=== PATIENT | female | born 1950 | race American Indian/Alaskan Native ===

== ENCOUNTER 2018-06-05 09:06 | Emergency (ER) | payer MEDICARE ==
[2018-06-05] MEDS ORDERED: NACL 0.9% 1000 ML 1,000 ML IV ONE ×2 (09:24→12:57)
[2018-06-05 09:40] LABS: Basophils # (Auto) 0.1 K/mm3 (0.0-0.1); Eosinophils # (Auto) 0.2 K/mm3 (0.0-0.4); Eosinophils % (Auto) 1.8 % (0.0-4.3); Hematocrit 42.8 % (30.3-42.9); Hemoglobin 14.3 gm/dl (10.1-14.3); Lymphocytes # (Auto) 2.1 K/mm3 (1.2-5.4); Lymphocytes % (Auto) 20.7 % (13.4-35.0); Mean Corpuscular HGB Conc 33 % (30-34); Mean Corpuscular Volume 85 fl (79-97); Monocytes # (Auto) 0.8 K/mm3 (0.0-0.8); Monocytes % (Auto) 7.8 % (0.0-7.3); Platelet Count 266 K/mm3 (140-440); Red Blood Count 5.07 M/mm3 (3.65-5.03); Red Cell Distribution Width 15.3 % (13.2-15.2)
[2018-06-05 10:01] LABS: Alanine Aminotransferase 11 units/L (7-56); Albumin 4.3 g/dL (3.9-5); BUN/Creatinine Ratio 10; Blood Urea Nitrogen 7 mg/dL (7-17); Calcium 10.3 mg/dL (8.4-10.2); Hemolysis Index 4
--- NOTE | 2018-06-05 10:22 | Emergency Department Report ---
ED Abdominal Pain HPI - General Chief Complaint: Abdominal Pain Stated Complaint: BOWEL BLOCKAGE X5DAYS Time Seen by Provider: 06/05/18 10:11 Source: patient Mode of arrival: Ambulatory Limitations: No Limitations - History of Present Illness Initial Comments: Patient is 67 years old female with history of hypertension. Patient presented to the ER complaining of abdominal pain for the last 5 days on and off. Patient described her pain as a fullness feeling. Patient stated that when she goes to the bathroom she would have a small amount of urine and stool. Patient also indicated that she'd been having urinary frequency. Patient denied any fever or chills. No chest pain or shortness of breath. MD Complaint: abdominal pain -: week(s) Location: diffuse Radiation: none Migration to: no migration Severity: moderate Severity scale (0 -10): 4 Quality: fullness Consistency: constant Associated Symptoms: denies other symptoms - Related Data Previous Rx's Medication Instructions Recorded Last Taken Type Clindamycin [Clindamycin CAP] 150 mg PO Q6HR #30 capsule 04/29/18 Unknown Rx Lisinopril/Hydrochlorothiazide 1 tab PO QDAY #30 tab 04/29/18 Unknown Rx [Zestoretic 20-12.5 mg] Tramadol HCl [Ultram] 50 mg PO Q6H PRN #10 tablet 04/29/18 Unknown Rx Docusate Sodium [Colace] 100 mg PO BID PRN #60 capsule 06/05/18 Unknown Rx Lactulose 10 gm PO DAILY PRN #150 ml 06/05/18 Unknown Rx Ondansetron [Zofran Odt] 4 mg PO Q8HR PRN #14 tab.rapdis 06/05/18 Unknown Rx Allergies Allergy/AdvReac Type Severity Reaction Status Date / Time acetaminophen [From Vicodin] Allergy Rash Verified 04/29/18 07:44 hydrocodone [From Vicodin] Allergy Rash Verified 04/29/18 07:44 ED Review of Systems ROS: Stated complaint: BOWEL BLOCKAGE X5DAYS Other details as noted in HPI Comment: All other systems reviewed and negative Constitutional: denies: chills, fever Respiratory: denies: cough, orthopnea, shortness of breath, SOB with exertion, SOB at rest, stridor, wheezing Cardiovascular: denies: chest pain, palpitations, dyspnea on exertion, orthopnea Gastrointestinal: abdominal pain, nausea, constipation. denies: vomiting, diarrhea, hematemesis, melena, hematochezia Genitourinary: urgency, frequency. denies: dysuria, hematuria, discharge, abnormal menses Neurological: denies: headache, weakness, numbness, paresthesias, confusion, abnormal gait ED Past Medical Hx - Past Medical History Previous Medical History?: Yes Hx Hypertension: Yes - Surgical History Past Surgical History?: Yes Additional Surgical History: 1980 - Social History Smoking Status: Never Smoker Substance Use Type: None - Medications Home Medications: Home Medications Medication Instructions Recorded Confirmed Last Taken Type Clindamycin [Clindamycin CAP] 150 mg PO Q6HR #30 capsule 04/29/18 Unknown Rx Lisinopril/Hydrochlorothiazide 1 tab PO QDAY #30 tab 04/29/18 Unknown Rx [Zestoretic 20-12.5 mg] Tramadol HCl [Ultram] 50 mg PO Q6H PRN #10 tablet 04/29/18 Unknown Rx Docusate Sodium [Colace] 100 mg PO BID PRN #60 capsule 06/05/18 Unknown Rx Lactulose 10 gm PO DAILY PRN #150 ml 06/05/18 Unknown Rx Ondansetron [Zofran Odt] 4 mg PO Q8HR PRN #14 tab.rapdis 06/05/18 Unknown Rx ED Physical Exam - General Limitations: No Limitations General appearance: alert, in no apparent distress - Head Head exam: Present: atraumatic, normocephalic, normal inspection - Eye Eye exam: Present: normal appearance, PERRL - ENT ENT exam: Present: normal exam, normal orophraynx, mucous membranes moist - Neck Neck exam: Present: normal inspection, full ROM. Absent: tenderness, meningismus, lymphadenopathy, thyromegaly - Respiratory Respiratory exam: Present: normal lung sounds bilaterally. Absent: respiratory distress, wheezes, rales, rhonchi, stridor, chest wall tenderness, accessory muscle use, decreased breath sounds, prolonged expiratory - Cardiovascular Cardiovascular Exam: Present: regular rate, normal rhythm, normal heart sounds - GI/Abdominal GI/Abdominal exam: Present: soft, distended, normal bowel sounds. Absent: tenderness, guarding, rebound, rigid, organomegaly, mass, bruit, pulsatile mass, hernia - Extremities Exam Extremities exam: Present: normal inspection, full ROM, normal capillary refill. Absent: pedal edema, calf tenderness - Back Exam Back exam: Present: normal inspection, full ROM. Absent: tenderness, CVA tenderness (R), CVA tenderness (L), muscle spasm, paraspinal tenderness, vertebral tenderness - Neurological Exam Neurological exam: Present: alert, oriented X3, CN II-XII intact, normal gait, reflexes normal - Psychiatric Psychiatric exam: Present: normal mood - Skin Skin exam: Present: warm, intact, normal color ED Course Vital Signs 06/05/18 06/05/18 06/05/18 09:21 10:40 12:59 Temperature 98.9 F 98.6 F 98.4 F Pulse Rate 77 65 60 Respiratory 18 16 16 Rate Blood Pressure 175/85 Blood Pressure 157/65 177/83 [Right] O2 Sat by Pulse 97 100 100 Oximetry ED Medical Decision Making - Lab Data Result diagrams: 06/05/18 09:28 06/05/18 09:28 - Radiology Data Radiology results: report reviewed Referring Physician: SHILOH SALCEDO Patient Name: EDWARD GOODE Date of : 1950 Sex: Female Report Date: 2018-06-05 Report Status: Finalized Findings [facility] [address] [place] [address] Ultrasound Report Signed Patient: EDWARD GOODE MR#: [id number] : 1950 Acct:[id number] Age/Sex: 67 / F ADM Date: 06/05/18 Loc: ED Attending Dr: Ordering Physician: SHILOH SALCEDO Date of Service: 06/05/18 Procedure(s): US abdomen limited Accession Number(s): [id number] cc: SHILOH SALCEDO ULTRASOUND ABDOMEN LIMITED INDICATION: Abdominal pain. COMPARISON: CT from earlier today. FINDINGS: Right upper quadrant sonography suggests slight diffuse hepatic coarsening without focal suspicious lesions or biliary dilatation. Grossly normal hepatic contours. A curvilinear gallbladder echogenicity with extensive posterior shadowing/obscuration of gallbladder toward the blade hepatis noted as on image 32. Approximately 5 cm long remainder gallbladder distal to this point however filled with diffuse echogenic material/sludge. No pericholecystic fluid or positive sonographic Machado's sign. Gallbladder wall thickness is 3 mm. CBD caliber is also 3 mm. Normal imaged pancreas, aorta and IVC. No hydronephrosis. Right kidney is 10.1 x 4.9 x 5 cm with cortical thickness of 1.3 cm. CONCLUSION: Sonographic appearance similar to CT from earlier today with a gallbladder echogenicity noted with sludge distally while more proximal gallbladder towards the blade hepatis obscured, as described. Few other findings as negative sonographic Machado's sign and hepatic coarsening, as above. Please correlate. Thank you for the opportunity to participate in this patient's care. Transcribed By: RS Dictated By: DORIS SANFORD MD Electronically Authenticated By: DORIS SANFORD MD Signed Date/Time: 06/05/18 1342 DD/ 1336 TD/TT: 06/05/18 1342 Referring Physician: SHILOH SALCEDO Patient Name: EDWARD GOODE Date of : 1950 Sex: Female Report Date: 2018-06-05 Report Status: Finalized Findings [facility] [address] [place] [address] Cat Scan Report Signed Patient: EDWARD GOODE MR#: [id number] : 1950 Acct:[id number] Age/Sex: 67 / F ADM Date: 06/05/18 Loc: ED Attending Dr: Ordering Physician: SHILOH SALCEDO Date of Service: 06/05/18 Procedure(s): CT abdomen pelvis w con Accession Number(s): [id number] cc: SHILOH SALCEDO CT ABDOMEN AND PELVIS WITH CONTRAST INDICATION: Abdominal pain. COMPARISON: None similar at this institution. FINDINGS: Abdomen and pelvis CT performed following intravenous administration of 100 cc of Omnipaque 300. LUNG BASES: Top normal heart size. No effusions. Slight increased AP chest diameter. Nonspecific distal esophageal wall mild prominence/thickening, not excluded for gastroesophageal reflux and/or hiatal hernia, amongst others. ABDOMEN: Mild waist and few calcifications noted about the mid gallbladder, axial series 2, image 48, amongst others with further distal gallbladder half toward the fundus containing somewhat hyperdense contents with subtle hyperdense sludge at the fundus also possible as on coronal image 42. Lower half of the gallbladder though demonstrates normal hypodense fluid. No abnormal biliary dilatation. Liver, spleen, pancreas, kidneys and IVC within normal limits. Nonaneurysmal abdominal aorta with few atherosclerotic aortoiliac calcifications. Slight diffuse adrenal prominence/possible hyperplasia, more so on the right. Retroaortic component of a circumaortic left renal vein incidentally noted. No ascites or definite size significant adenopathy. Nonopacified GI tract evaluation limited, though grossly nonobstructive. Normal appendix. PELVIS: Uterus, adnexa, urinary bladder and the rectosigmoid within normal limits. No free fluid or significant adenopathy. Approximately 1.7 cm bilateral inguinal canal region fatty hernia-like prominence as on axial image 166, series 2, amongst others. Demineralized bones. Mild multilevel spinal degenerative spurring. L5-S1 disc narrowing with vacuum phenomenon. Bilateral hip degenerative changes as well. Approximately 3.6 x 1.5 cm asymmetric fatty prominence/lipoma at the left seventh rib costochondral junction anteriorly also incidentally noted as on axial image 44. CONCLUSION: Gallbladder CT appearance, as detailed above, exact etiology or chronicity uncertain, not excluded for old infection or inflammatory, though other possibilities including neoplasm difficult to entirely exclude on this exam alone. Few other incidental findings, as above. Please also correlate clinically. Direct comparison with prior CT images, if available, would also be very helpful in this setting. Thank you for the opportunity to participate in this patient's care. Transcribed By: RS Dictated By: DORIS SANFORD MD Electronically Authenticated By: DORIS SANFORD MD Signed Date/Time: 06/05/18 1137 DD/ 1121 TD/TT: 06/05/18 1137 - Medical Decision Making Patient is 67 years old female with history of hypertension. Patient presented to the ER complaining of abdominal pain for the last 5 days on and off. Patient described her pain as a fullness feeling. Patient stated that when she goes to the bathroom she would have a small amount of urine and stool. Patient also indicated that she'd been having urinary frequency. Patient denied any fever or chills. No chest pain or shortness of breath. Patient informed about how her CT abdomen and pelvis results. Also the gallbladder results and advised the patient to follow-up with Dr. Tabares or surgeon in the next 2-3 days for further management and evaluation. Critical care attestation.: If time is entered above; I have spent that time in minutes in the direct care of this critically ill patient, excluding procedure time. ED Disposition Clinical Impression: Abdominal pain Disposition: DC-01 TO HOME OR SELFCARE Is pt being admited?: No Condition: Stable Instructions: Constipation (ED), High Fiber Diet (ED), Abdominal Pain (ED) Prescriptions: Docusate Sodium [Colace] 100 mg PO BID PRN #60 capsule PRN Reason: Constipation Lactulose 10 gm PO DAILY PRN #150 ml PRN Reason: Constipation Ondansetron [Zofran Odt] 4 mg PO Q8HR PRN #14 tab.rapdis PRN Reason: Nausea And Vomiting Referrals: DALTON TABARES MD [Staff Physician] - 3-5 Days
[2018-06-05 10:26] LABS: Bacteria,Urine 1+ /HPF (Negative); Bilirubin,Urine NEG (Negative); Blood,Urine SM (Negative); Color,Urine Yellow (Yellow); Mucus,Urine FEW /HPF; Protein,Urine <15 mg/dL mg/dL (Negative); Urobilinogen,Urine < 2.0 mg/dL (<2.0)
--- NOTE | 2018-06-05 11:41 | Cat Scan Report ---
CT ABDOMEN AND PELVIS WITH CONTRAST INDICATION: Abdominal pain. COMPARISON: None similar at this institution. FINDINGS: Abdomen and pelvis CT performed following intravenous administration of 100 cc of Omnipaque 300. LUNG BASES: Top normal heart size. No effusions. Slight increased AP chest diameter. Nonspecific distal esophageal wall mild prominence/thickening, not excluded for gastroesophageal reflux and/or hiatal hernia, amongst others. ABDOMEN: Mild waist and few calcifications noted about the mid gallbladder, axial series 2, image 48, amongst others with further distal gallbladder half toward the fundus containing somewhat hyperdense contents with subtle hyperdense sludge at the fundus also possible as on coronal image 42. Lower half of the gallbladder though demonstrates normal hypodense fluid. No abnormal biliary dilatation. Liver, spleen, pancreas, kidneys and IVC within normal limits. Nonaneurysmal abdominal aorta with few atherosclerotic aortoiliac calcifications. Slight diffuse adrenal prominence/possible hyperplasia, more so on the right. Retroaortic component of a circumaortic left renal vein incidentally noted. No ascites or definite size significant adenopathy. Nonopacified GI tract evaluation limited, though grossly nonobstructive. Normal appendix. PELVIS: Uterus, adnexa, urinary bladder and the rectosigmoid within normal limits. No free fluid or significant adenopathy. Approximately 1.7 cm bilateral inguinal canal region fatty hernia-like prominence as on axial image 166, series 2, amongst others. Demineralized bones. Mild multilevel spinal degenerative spurring. L5-S1 disc narrowing with vacuum phenomenon. Bilateral hip degenerative changes as well. Approximately 3.6 x 1.5 cm asymmetric fatty prominence/lipoma at the left seventh rib costochondral junction anteriorly also incidentally noted as on axial image 44. CONCLUSION: Gallbladder CT appearance, as detailed above, exact etiology or chronicity uncertain, not excluded for old infection or inflammatory, though other possibilities including neoplasm difficult to entirely exclude on this exam alone. Few other incidental findings, as above. Please also correlate clinically. Direct comparison with prior CT images, if available, would also be very helpful in this setting. Thank you for the opportunity to participate in this patient's care.
--- NOTE | 2018-06-05 13:46 | Ultrasound Report ---
ULTRASOUND ABDOMEN LIMITED INDICATION: Abdominal pain. COMPARISON: CT from earlier today. FINDINGS: Right upper quadrant sonography suggests slight diffuse hepatic coarsening without focal suspicious lesions or biliary dilatation. Grossly normal hepatic contours. A curvilinear gallbladder echogenicity with extensive posterior shadowing/obscuration of gallbladder toward the blade hepatis noted as on image 32. Approximately 5 cm long remainder gallbladder distal to this point however filled with diffuse echogenic material/sludge. No pericholecystic fluid or positive sonographic Machado's sign. Gallbladder wall thickness is 3 mm. CBD caliber is also 3 mm. Normal imaged pancreas, aorta and IVC. No hydronephrosis. Right kidney is 10.1 x 4.9 x 5 cm with cortical thickness of 1.3 cm. CONCLUSION: Sonographic appearance similar to CT from earlier today with a gallbladder echogenicity noted with sludge distally while more proximal gallbladder towards the blade hepatis obscured, as described. Few other findings as negative sonographic Machado's sign and hepatic coarsening, as above. Please correlate. Thank you for the opportunity to participate in this patient's care.
[2018-06-05 15:10] VITALS: BP 177/85
== END 2018-06-05 15:10 | disposition home or self-care (01) ==
LOC: ED 09:06
DX: R10.84 Generalized abdominal pain (principal); R35.0 Frequency of micturition; I10 Essential (primary) hypertension; Z88.5 Allergy status to narcotic agent
CPT/HCPCS: 36415; 74177; 76705; 80053; 81001; 83690; 85025; 99284; J7030; Q9967

== ENCOUNTER 2020-01-11 07:49 | Inpatient (IN) | payer MEDICARE ==
[2020-01-11 08:30] LABS: Hematocrit 41.6 % (30.3-42.9); Mean Corpuscular HGB Conc 34 % (30-34); Mean Corpuscular Volume 87 fl (79-97); Platelet Count 291 K/mm3 (140-440); Red Cell Distribution Width 15.2 % (13.2-15.2)
[2020-01-11 08:53] LABS: Alanine Aminotransferase 12 units/L (7-56); Albumin 4.4 g/dL (3.9-5); BUN/Creatinine Ratio 20; Blood Urea Nitrogen 10 mg/dL (7-17); Calcium 10.4 mg/dL (8.4-10.2); Hemolysis Index 8
[2020-01-11 09:00] LABS: Bilirubin,Urine NEG (Negative); Color,Urine Yellow (Yellow)
[2020-01-11 09:01] LABS: Bacteria,Urine 1+ /HPF (Negative); Blood,Urine SM (Negative); Mucus,Urine 1+ /HPF; Urobilinogen,Urine < 2.0 mg/dL (<2.0)
[2020-01-11 09:21] LABS: Basophils % (Manual) 0 % (0.0-1.8); Eosinophils % (Manual) 0 % (0.0-4.3); Total Cells Counted 100
[2020-01-11 09:22] LABS: Platelet Estimate Consistent w Auto; RBC Morphology Normal; Toxic Vacuolation Few
--- NOTE | 2020-01-11 11:14 | Emergency Department Report ---
HPI - General Chief Complaint: Abdominal Pain Time Seen by Provider: 01/11/20 11:04 - HPI HPI: This is a 69-year-old -Swazi female presents to the emergency department with a complaint of a 3-day history of generalized abdominal pain. On examination it appears to be worse in the upper quadrants and the patient describes the pain as a soreness. She has some mild nausea without vomiting. The patient says "I feel like I have to burp but I cannot burp, and I cannot have a bowel movement." She also describes a burning sensation. For this r claudia she took some Pepto-Bismol that did help with the burning sensation. She denies any dysuria, fever, vaginal bleeding or discharge. Patient says she is scared to eat or drink as she feels that it just "sits there", but it does not aggravate or alleviate her discomfort. She has a past medical history of hypertension. No recent travel or sick contacts at home. ED Past Medical Hx - Past Medical History Previous Medical History?: Yes Hx Hypertension: Yes - Surgical History Past Surgical History?: Yes Additional Surgical History: 1980 - Social History Smoking Status: Never Smoker Substance Use Type: None - Medications Home Medications: Home Medications Medication Instructions Recorded Confirmed Last Taken Type Losartan Potassium 50 mg PO DAILY 01/11/20 01/11/20 01/11/20 History ED Review of Systems ROS: Stated complaint: BELLY BURNING AND SWELLING Other details as noted in HPI Comment: All other systems reviewed and negative Constitutional: denies: chills, fever Eyes: denies: eye pain, vision change ENT: denies: ear pain, throat pain Respiratory: denies: cough, shortness of breath Cardiovascular: denies: chest pain, palpitations Gastrointestinal: abdominal pain, nausea. denies: vomiting Genitourinary: denies: dysuria, discharge Musculoskeletal: denies: back pain, arthralgia Skin: denies: rash, lesions Neurological: denies: headache, weakness Physical Exam - Physical Exam Vital Signs: Vital Signs 01/11/20 01/11/20 01/11/20 07:53 11:06 11:08 Temperature 98.7 F 98.8 F Pulse Rate 100 H 101 H 90 Respiratory 20 19 16 Rate Blood Pressure 153/83 Blood Pressure 172/95 [Left] O2 Sat by Pulse 97 99 Oximetry 01/11/20 11:10 Temperature Pulse Rate Respiratory 16 Rate Blood Pressure Blood Pressure [Left] O2 Sat by Pulse Oximetry Physical Exam: GENERAL: The patient is well-developed well-nourished. HENT: Normocephalic. Atraumatic. Patient has moist mucous membranes. EYES: Extraocular motions are intact. NECK: Supple. Trachea is midline. CHEST/LUNGS: Clear to auscultation. There is no respiratory distress noted. HEART/CARDIOVASCULAR: Regular. There is no tachycardia. ABDOMEN: Abdomen is soft. Epigastric and right upper quadrant abdominal tenderness to palpation. No guarding. Patient has normal bowel sounds. There is no abdominal distention. SKIN: Skin is warm and dry. NEURO: The patient is awake, alert, and oriented. The patient is cooperative. The patient has no focal neurologic deficits. Normal speech. MUSCULOSKELETAL: There is no tenderness or deformity. There is no evidence of acute injury. ED Course Vital Signs 01/11/20 01/11/20 01/11/20 07:53 11:06 11:08 Temperature 98.7 F 98.8 F Pulse Rate 100 H 101 H 90 Respiratory 20 19 16 Rate Blood Pressure 153/83 Blood Pressure 172/95 [Left] O2 Sat by Pulse 97 99 Oximetry 01/11/20 11:10 Temperature Pulse Rate Respiratory 16 Rate Blood Pressure Blood Pressure [Left] O2 Sat by Pulse Oximetry - Reevaluation(s) Reevaluation #1: 01/11/20 18:07 Lab Results 01/11/20 01/11/20 01/11/20 Range/Units 08:17 08:17 10:33 WBC 21.8 H (4.5-11.0) K/mm3 RBC 4.80 (3.65-5.03) M/mm3 Hgb 14.0 (10.1-14.3) gm/dl Hct 41.6 (30.3-42.9) % MCV 87 (79-97) fl MCH 29 (28-32) pg MCHC 34 (30-34) % RDW 15.2 (13.2-15.2) % Plt Count 291 (140-440) K/mm3 Add Manual Diff Complete Total Counted 100 Seg Neuts % (Manual) 90.0 H (40.0-70.0) % Band Neutrophils % 0 % Lymphocytes % (Manual) 4.0 L (13.4-35.0) % Reactive Lymphs % (Man) 0 % Monocytes % (Manual) 6.0 (0.0-7.3) % Eosinophils % (Manual) 0 (0.0-4.3) % Basophils % (Manual) 0 (0.0-1.8) % Metamyelocytes % 0 % Myelocytes % 0 % Promyelocytes % 0 % Blast Cells % 0 % Nucleated RBC % Not Reportable Seg Neutrophils # Man 19.6 H (1.8-7.7) K/mm3 Band Neutrophils # 0.0 K/mm3 Lymphocytes # (Manual) 0.9 L (1.2-5.4) K/mm3 Abs React Lymphs (Man) 0.0 K/mm3 Monocytes # (Manual) 1.3 H (0.0-0.8) K/mm3 Eosinophils # (Manual) 0.0 (0.0-0.4) K/mm3 Basophils # (Manual) 0.0 (0.0-0.1) K/mm3 Metamyelocytes # 0.0 K/mm3 Myelocytes # 0.0 K/mm3 Promyelocytes # 0.0 K/mm3 Blast Cells # 0.0 K/mm3 WBC Morphology Not Reportable Hypersegmented Neuts Not Reportable Hyposegmented Neuts Not Reportable Hypogranular Neuts Not Reportable Smudge Cells Not Reportable Toxic Granulation Not Reportable Toxic Vacuolation Few Dohle Bodies Not Reportable Pelger-Huet Anomaly Not Reportable Sawyer Rods Not Reportable Platelet Estimate Consistent w auto Clumped Platelets Not Reportable Plt Clumps, EDTA Not Reportable Large Platelets Not Reportable Giant Platelets Not Reportable Platelet Satelliting Not Reportable Plt Morphology Comment Not Reportable RBC Morphology Normal Dimorphic RBCs Not Reportable Polychromasia Not Reportable Hypochromasia Not Reportable Poikilocytosis Not Reportable Anisocytosis Not Reportable Microcytosis Not Reportable Macrocytosis Not Reportable Spherocytes Not Reportable Pappenheimer Bodies Not Reportable Sickle Cells Not Reportable Target Cells Not Reportable Tear Drop Cells Not Reportable Ovalocytes Not Reportable Helmet Cells Not Reportable Alaniz-[place] Bodies Not Reportable [place] Rings Not Reportable [place] Cells Not Reportable Bite Cells Not Reportable Crenated Cell Not Reportable Elliptocytes Not Reportable Acanthocytes (Spur) Not Reportable Rouleaux Not Reportable Hemoglobin C Crystals Not Reportable Schistocytes Not Reportable Malaria parasites Not Reportable [place] Bodies Not Reportable Hem Pathologist Commnt No Sodium 140 (137-145) mmol/L Potassium 3.8 (3.6-5.0) mmol/L Chloride 101.2 (98-107) mmol/L Carbon Dioxide 24 (22-30) mmol/L Anion Gap 19 mmol/L BUN 10 (7-17) mg/dL Creatinine 0.5 L (0.6-1.2) mg/dL Estimated GFR > 60 ml/min BUN/Creatinine Ratio 20 % Glucose 151 H (65-100) mg/dL Lactic Acid (0.7-2.0) mmol/L Calcium 10.4 H (8.4-10.2) mg/dL Total Bilirubin 0.70 (0.1-1.2) mg/dL AST 12 (5-40) units/L ALT 12 (7-56) units/L Alkaline Phosphatase 79 (35-129) units/L Total Protein 7.5 (6.3-8.2) g/dL Albumin 4.4 (3.9-5) g/dL Albumin/Globulin Ratio 1.4 % Lipase 10 L (13-60) units/L 01/11/20 Range/Units 10:33 WBC (4.5-11.0) K/mm3 RBC (3.65-5.03) M/mm3 Hgb (10.1-14.3) gm/dl Hct (30.3-42.9) % MCV (79-97) fl MCH (28-32) pg MCHC (30-34) % RDW (13.2-15.2) % Plt Count (140-440) K/mm3 Add Manual Diff Total Counted Seg Neuts % (Manual) (40.0-70.0) % Band Neutrophils % % Lymphocytes % (Manual) (13.4-35.0) % Reactive Lymphs % (Man) % Monocytes % (Manual) (0.0-7.3) % Eosinophils % (Manual) (0.0-4.3) % Basophils % (Manual) (0.0-1.8) % Metamyelocytes % % Myelocytes % % Promyelocytes % % Blast Cells % % Nucleated RBC % Seg Neutrophils # Man (1.8-7.7) K/mm3 Band Neutrophils # K/mm3 Lymphocytes # (Manual) (1.2-5.4) K/mm3 Abs React Lymphs (Man) K/mm3 Monocytes # (Manual) (0.0-0.8) K/mm3 Eosinophils # (Manual) (0.0-0.4) K/mm3 Basophils # (Manual) (0.0-0.1) K/mm3 Metamyelocytes # K/mm3 Myelocytes # K/mm3 Promyelocytes # K/mm3 Blast Cells # K/mm3 WBC Morphology Hypersegmented Neuts Hyposegmented Neuts Hypogranular Neuts Smudge Cells Toxic Granulation Toxic Vacuolation Dohle Bodies Pelger-Huet Anomaly Sawyer Rods Platelet Estimate Clumped Platelets Plt Clumps, EDTA Large Platelets Giant Platelets Platelet Satelliting Plt Morphology Comment RBC Morphology Dimorphic RBCs Polychromasia Hypochromasia Poikilocytosis Anisocytosis Microcytosis Macrocytosis Spherocytes Pappenheimer Bodies Sickle Cells Target Cells Tear Drop Cells Ovalocytes Helmet Cells Alaniz-[place] Bodies [place] Cells Bite Cells Crenated Cell Elliptocytes Acanthocytes (Spur) Rouleaux Hemoglobin C Crystals Schistocytes Malaria parasites Grayson Bodies Hem Pathologist Commnt Sodium (137-145) mmol/L Potassium (3.6-5.0) mmol/L Chloride (98-107) mmol/L Carbon Dioxide (22-30) mmol/L Anion Gap mmol/L BUN (7-17) mg/dL Creatinine (0.6-1.2) mg/dL Estimated GFR ml/min BUN/Creatinine Ratio % Glucose (65-100) mg/dL Lactic Acid 0.90 (0.7-2.0) mmol/L Calcium (8.4-10.2) mg/dL Total Bilirubin (0.1-1.2) mg/dL AST (5-40) units/L ALT (7-56) units/L Alkaline Phosphatase (35-129) units/L Total Protein (6.3-8.2) g/dL Albumin (3.9-5) g/dL Albumin/Globulin Ratio % Lipase (13-60) units/L - Consultations Consultation #1: 01/11/20 12:26 I spoke with the general surgeon on-call, Dr. Tabares, who will consult on the patient. The patient should be admitted to the hospitalist service and he will consult. The patient is not going for a cholecystectomy today but will most likely have one in the next few days. ED Medical Decision Making - Lab Data Result diagrams: 01/11/20 08:17 01/11/20 08:17 - Radiology Data Radiology results: report reviewed CT ABDOMEN AND PELVIS WITH CONTRAST INDICATION / CLINICAL INFORMATION: Unspecified abdominal pain. TECHNIQUE: Axial CT images were obtained through the abdomen and pelvis after 100 cc Omnipaque [address] scans at this location are performed using CT dose reduction for ALARA by means of automated exposure control. COMPARISON: None available. FINDINGS: LOWER CHEST: No significant abnormality. LIVER: No significant abnormality. GALLBLADDER: C holelithiasis is seen with moderate gallbladder wall thickening and surrounding inflammation. BILE DUCTS: No significant abnormality. PANCREAS: No significant abnormality. SPLEEN: No significant abnormality. ADRENALS: No significant abnormality. RIGHT KIDNEY / URETER: No significant abnormality. LEFT KIDNEY / URETER: No significant abnormality. STOMACH / SMALL BOWEL: No significant abnormality. COLON: Sigmoid diverticulosis without evidence of diverticulitis. No other significant abnormality. APPENDIX: No significant abnormality. PERITONEUM: Trace dependent free fluid along the pelvis. No free air. No fluid collection. LYMPH NODES: No significant adenopathy. AORTA / ARTERIES: Moderate generalized atherosclerosis. No other significant abnormality. IVC / VEINS: No significant abnormality. URINARY BLADDER: No significant abnormality. REPRODUCTIVE ORGANS: No significant abnormality. ADDITIONAL FINDINGS: None. SKELETAL SYSTEM: No acute abnormality. Mild degenerative changes throughout the spine. IMPRESSION: 1. Cholelithiasis with evidence of acute cholecystitis. Please correlate with the clinical findings. 2. Additional findings as above. - Medical Decision Making Patient presents to the emergency department with a complaint of upper abdominal pain, feelings of abdominal fullness, difficulty with bowel movements. Patient's labs shows a leukocytosis of almost 22,000. Normal metabolic panel including LFTs, lipase and bilirubin. CT scan of the abdomen and pelvis with IV contrast shows cholelithiasis and acute cholecystitis. General surgery contacted and consulted. Patient has received IV fluid resuscitation and IV antibiotics. She will be admitted to the hospitalist service and they will continue to evaluate for possible cholecystectomy. Critical Care Time: Yes Critical care time in (mins) excluding proc time.: 35 Critical care attestation.: If time is entered above; I have spent that time in minutes in the direct care of this critically ill patient, excluding procedure time. Critical care time was spent on this patient in doing her initial evaluation, multiple re- evaluations, ordering interpretation of labs and imaging, discussion with the general surgeon, multiple discussions with the patient, IV fluid resuscitation and IV antibiotics. Critical Care Time: 35 minutes ED Disposition Clinical Impression: Acute cholecystitis Hypertension Qualifiers: Hypertension type: essential hypertension Qualified Code(s): I10 - Essential (primary) hypertension Disposition: 09 OP ADMIT IP TO THIS HOSP Is pt being admited?: Yes Condition: Fair Time of Disposition: 12:27
[2020-01-11] MEDS ORDERED: SODIUM CHLORIDE 0.9% 1000 ML 1,000 ML IV ONE (11:45)
--- NOTE | 2020-01-11 11:51 | Cat Scan Report ---
CT ABDOMEN AND PELVIS WITH CONTRAST INDICATION / CLINICAL INFORMATION: Unspecified abdominal pain. TECHNIQUE: Axial CT images were obtained through the abdomen and pelvis after 100 cc Omnipaque [address] scans at this location are performed using CT dose reduction for ALARA by means of automated exposure control. COMPARISON: None available. FINDINGS: LOWER CHEST: No significant abnormality. LIVER: No significant abnormality. GALLBLADDER: Cholelithiasis is seen with moderate gallbladder wall thickening and surrounding inflamm ation. BILE DUCTS: No significant abnormality. PANCREAS: No significant abnormality. SPLEEN: No significant abnormality. ADRENALS: No significant abnormality. RIGHT KIDNEY / URETER: No significant abnormality. LEFT KIDNEY / URETER: No significant abnormality. STOMACH / SMALL BOWEL: No significant abnormality. COLON: Sigmoid diverticulosis without evidence of diverticulitis. No other significant abnormality. APPENDIX: No significant abnormality. PERITONEUM: Trace dependent free fluid along the pelvis. No free air. No fluid collection. LYMPH NODES: No significant adenopathy. AORTA / ARTERIES: Moderate generalized atherosclerosis. No other significant abnormality. IVC / VEINS: No significant abnormality. URINARY BLADDER: No significant abnormality. REPRODUCTIVE ORGANS: No significant abnormality. ADDITIONAL FINDINGS: None. SKELETAL SYSTEM: No acute abnormality. Mild degenerative changes throughout the spine. IMPRESSION: 1. Cholelithiasis with evidence of acute cholecystitis. Please correlate with the clinical findings. 2. Additional findings as above. Signer Name: Tomy Snow MD Signed: 01/11/2020 11:47 AM Workstation Name: [id number]
[2020-01-11] MEDS ORDERED: PIPERACIL/TAZOBACTA 4.5/NS 100 4.5 GM/100 ML VIAL IV ONE (12:02)
[2020-01-11] MEDS ORDERED: ACETAMINOPHEN 325 MG TAB PO PRN (14:56)
[2020-01-11] MEDS ORDERED: ONDANSETRON 4 MG/2 ML INJ IV PRN (14:56)
--- NOTE | 2020-01-11 14:58 | History and Physical Report ---
History of Present Illness Date of examination: 01/11/20 Date of admission: 01/11/20 12:27 Chief complaint: Abdominal pain History of present illness: 69-year-old -A[place]ij[place] female with a medical history of hypertension who presents to the emergency department with a complaint of a 3-day history of generalized abdominal pain. She states that she has been having intermittent abdominal pain that is diffuse in nature. She also has associated nausea without any vomiting. She tried over the counter medications to help with the sensation but she did not feel any relief. She denies any fever, diarrhea or contact with anyone with GI symptoms. She reports not been able to have a bowel movement for a while. Due to persistent symptoms, she decided to come to the hospital for further evaluation. In the ER, patient had leukocytosis-WBC [address] abdomen performed showed cholelithiasis with cholecystitis. Patient was subsequently admitted for further evaluation. Surgery was consulted from the ER. Past History Past Medical History: hypertension Social history: no significant social history Medications and Allergies Allergies Allergy/AdvReac Type Severity Reaction Status Date / Time acetaminophen [From Vicodin] Allergy Rash Verified 04/29/18 07:44 hydrocodone [From Vicodin] Allergy Rash Verified 04/29/18 07:44 Home Medications Medication Instructions Recorded Confirmed Last Taken Type Losartan Potassium 50 mg PO DAILY 01/11/20 01/11/20 01/11/20 History Active Meds: Active Medications Acetaminophen (Tylenol) 650 mg PO Q4H PRN PRN Reason: Pain MILD(1-3)/Fever >100.5/[place] Sodium Chloride (Nacl 0.9% 1000 Ml) 1,000 mls @ 125 mls/hr IV ONCE ONE Stop: 01/11/20 19:44 Last Admin: 01/11/20 12:12 Dose: 125 mls/hr Documented by: Piperacillin Sod/Tazobactam Sod (Zosyn/Ns 4.5gm/100ml) 4.5 gm in 100 mls @ 200 mls/hr IV Q8HR MATT; Protocol Ondansetron HCl (Zofran) 4 mg IV Q8H PRN PRN Reason: Nausea And Vomiting Sodium Chloride (Sodium Chloride Flush Syringe 10 Ml) 10 ml IV BID MATT Sodium Chloride (Sodium Chloride Flush Syringe 10 Ml) 10 ml IV PRN PRN PRN Reason: LINE FLUSH Review of Systems Gastrointestinal: abdominal pain Exam - Constitutional Vitals: Temp Pulse Resp BP Pulse Ox 98.8 F 82 19 149/82 97 01/11/20 11:08 01/11/20 13:30 01/11/20 13:30 01/11/20 13:30 01/11/20 13:30 General appearance: Present: no acute distress, well-nourished - EENT Eyes: Present: PERRL ENT: hearing intact, clear oral mucosa - Neck Neck: Present: supple, normal ROM - Respiratory Respiratory effort: normal Respiratory: bilateral: CTA - Cardiovascular Heart Sounds: Present: S1 & S2. Absent: rub, click - Extremities Extremities: pulses symmetrical, No edema Peripheral Pulses: within normal limits - Abdominal General gastrointestinal: Present: soft, tender (Nonspecific and diffuse.), non-distended, normal bowel sounds Female genitourinary: Present: normal - Integumentary Integumentary: Present: clear, warm, dry - Musculoskeletal Musculoskeletal: gait normal, strength equal bilaterally - Psychiatric Psychiatric: appropriate mood/affect, intact judgment & insight - Neurologic Neurologic: CNII-XII intact, moves all extremities Results - Labs CBC & Chem 7: 01/11/20 08:17 01/11/20 08:17 Labs: Laboratory Last Values WBC 21.8 K/mm3 (4.5-11.0) H 01/11/20 08:17 RBC 4.80 M/mm3 (3.65-5.03) 01/11/20 08:17 Hgb 14.0 gm/dl (10.1-14.3) 01/11/20 08:17 Hct 41.6 % (30.3-42.9) 01/11/20 08:17 MCV 87 fl (79-97) 01/11/20 08:17 MCH 29 pg (28-32) 01/11/20 08:17 MCHC 34 % (30-34) 01/11/20 08:17 RDW 15.2 % (13.2-15.2) 01/11/20 08:17 Plt Count 291 K/mm3 (140-440) 01/11/20 08:17 Add Manual Diff Complete 01/11/20 08:17 Total Counted 100 01/11/20 08:17 Seg Neuts % (Manual) 90.0 % (40.0-70.0) H 01/11/20 08:17 Band Neutrophils % 0 % 01/11/20 08:17 Lymphocytes % (Manual) 4.0 % (13.4-35.0) L 01/11/20 08:17 Reactive Lymphs % (Man) 0 % 01/11/20 08:17 Monocytes % (Manual) 6.0 % (0.0-7.3) 01/11/20 08:17 Eosinophils % (Manual) 0 % (0.0-4.3) 01/11/20 08:17 Basophils % (Manual) 0 % (0.0-1.8) 01/11/20 08:17 Metamyelocytes % 0 % 01/11/20 08:17 Myelocytes % 0 % 01/11/20 08:17 Promyelocytes % 0 % 01/11/20 08:17 Blast Cells % 0 % 01/11/20 08:17 Nucleated RBC % Not Reportable 01/11/20 08:17 Seg Neutrophils # Man 19.6 K/mm3 (1.8-7.7) H 01/11/20 08:17 Band Neutrophils # 0.0 K/mm3 01/11/20 08:17 Lymphocytes # (Manual) 0.9 K/mm3 (1.2-5.4) L 01/11/20 08:17 Abs React Lymphs (Man) 0.0 K/mm3 01/11/20 08:17 Monocytes # (Manual) 1.3 K/mm3 (0.0-0.8) H 01/11/20 08:17 Eosinophils # (Manual) 0.0 K/mm3 (0.0-0.4) 01/11/20 08:17 Basophils # (Manual) 0.0 K/mm3 (0.0-0.1) 01/11/20 08:17 Metamyelocytes # 0.0 K/mm3 01/11/20 08:17 Myelocytes # 0.0 K/mm3 01/11/20 08:17 Promyelocytes # 0.0 K/mm3 01/11/20 08:17 Blast Cells # 0.0 K/mm3 01/11/20 08:17 WBC Morphology Not Reportable 01/11/20 08:17 Hypersegmented Neuts Not Reportable 01/11/20 08:17 Hyposegmented Neuts Not Reportable 01/11/20 08:17 Hypogranular Neuts Not Reportable 01/11/20 08:17 Smudge Cells Not Reportable 01/11/20 08:17 Toxic Granulation Not Reportable 01/11/20 08:17 Toxic Vacuolation Few 01/11/20 08:17 Dohle Bodies Not Reportable 01/11/20 08:17 Pelger-Huet Anomaly Not Reportable 01/11/20 08:17 Sawyer Rods Not Reportable 01/11/20 08:17 Platelet Estimate Consistent w auto 01/11/20 08:17 Clumped Platelets Not Reportable 01/11/20 08:17 Plt Clumps, EDTA Not Reportable 01/11/20 08:17 Large Platelets Not Reportable 01/11/20 08:17 Giant Platelets Not Reportable 01/11/20 08:17 Platelet Satelliting Not Reportable 01/11/20 08:17 Plt Morphology Comment Not Reportable 01/11/20 08:17 RBC Morphology Normal 01/11/20 08:17 Dimorphic RBCs Not Reportable 01/11/20 08:17 Polychromasia Not Reportable 01/11/20 08:17 Hypochromasia Not Reportable 01/11/20 08:17 Poikilocytosis Not Reportable 01/11/20 08:17 Anisocytosis Not Reportable 01/11/20 08:17 Microcytosis Not Reportable 01/11/20 08:17 Macrocytosis Not Reportable 01/11/20 08:17 Spherocytes Not Reportable 01/11/20 08:17 Pappenheimer Bodies Not Reportable 01/11/20 08:17 Sickle Cells Not Reportable 01/11/20 08:17 Target Cells Not Reportable 01/11/20 08:17 Tear Drop Cells Not Reportable 01/11/20 08:17 Ovalocytes Not Reportable 01/11/20 08:17 Helmet Cells Not Reportable 01/11/20 08:17 Alaniz-[place] Bodies Not Reportable 01/11/20 08:17 [place] Rings Not Reportable 01/11/20 08:17 Ally Cells Not Reportable 01/11/20 08:17 Bite Cells Not Reportable 01/11/20 08:17 Crenated Cell Not Reportable 01/11/20 08:17 Elliptocytes Not Reportable 01/11/20 08:17 Acanthocytes (Spur) Not Reportable 01/11/20 08:17 Rouleaux Not Reportable 01/11/20 08:17 Hemoglobin C Crystals Not Reportable 01/11/20 08:17 Schistocytes Not Reportable 01/11/20 08:17 Malaria parasites Not Reportable 01/11/20 08:17 [place] Bodies Not Reportable 01/11/20 08:17 Hem Pathologist Commnt No 01/11/20 08:17 Sodium 140 mmol/L (137-145) 01/11/20 08:17 Potassium 3.8 mmol/L (3.6-5.0) 01/11/20 08:17 Chloride 101.2 mmol/L (98-107) 01/11/20 08:17 Carbon Dioxide 24 mmol/L (22-30) 01/11/20 08:17 Anion Gap 19 mmol/L 01/11/20 08:17 BUN 10 mg/dL (7-17) 01/11/20 08:17 Creatinine 0.5 mg/dL (0.6-1.2) L 01/11/20 08:17 Estimated GFR > 60 ml/min 01/11/20 08:17 BUN/Creatinine Ratio 20 % 01/11/20 08:17 Glucose 151 mg/dL (65-100) H 01/11/20 08:17 Lactic Acid 0.90 mmol/L (0.7-2.0) 01/11/20 10:33 Calcium 10.4 mg/dL (8.4-10.2) H 01/11/20 08:17 Total Bilirubin 0.70 mg/dL (0.1-1.2) 01/11/20 08:17 AST 12 units/L (5-40) 01/11/20 08:17 ALT 12 units/L (7-56) 01/11/20 08:17 Alkaline Phosphatase 79 units/L (35-129) 01/11/20 08:17 Total Protein 7.5 g/dL (6.3-8.2) 01/11/20 08:17 Albumin 4.4 g/dL (3.9-5) 01/11/20 08:17 Albumin/Globulin Ratio 1.4 % 01/11/20 08:17 Lipase 10 units/L (13-60) L 01/11/20 10:33 Urine Color Yellow (Yellow) 01/11/20 Unknown Urine Turbidity Clear (Clear) 01/11/20 Unknown Urine pH 5.0 (5.0-7.0) 01/11/20 Unknown Ur Specific [place] 1.026 (1.003-1.030) 01/11/20 Unknown Urine Protein 30 mg/dl mg/dL (Negative) 01/11/20 Unknown Urine Glucose (UA) Neg mg/dL (Negative) 01/11/20 Unknown Urine Ketones 20 mg/dL (Negative) 01/11/20 Unknown Urine Blood Sm (Negative) 01/11/20 Unknown Urine Nitrite Neg (Negative) 01/11/20 Unknown Urine Bilirubin Neg (Negative) 01/11/20 Unknown Urine Urobilinogen < 2.0 mg/dL (<2.0) 01/11/20 Unknown Ur Leukocyte Esterase Neg (Negative) 01/11/20 Unknown Urine WBC (Auto) 3.0 /HPF (0.0-6.0) 01/11/20 Unknown Urine RBC (Auto) 2.0 /HPF (0.0-6.0) 01/11/20 Unknown U Epithel Cells (Auto) 2.0 /HPF (0-13.0) 01/11/20 Unknown Urine Bacteria (Auto) 1+ /HPF (Negative) 01/11/20 Unknown Urine Mucus 1+ /HPF 01/11/20 Unknown Microbiology: Microbiology 01/11/20 10:33 Peripheral/Venous Blood Culture - Preliminary Culture in Progress 01/11/20 10:33 Peripheral/Venous Blood Culture - Preliminary Culture in Progress Massey/IV: IV Catheter Type [Right Peripheral IV Antecubital] Assessment and Plan Assessment and plan: 69-year-old female with a medical history of hypertension presented to the emergency room with a chief complaint of abdominal pain that started 3 days prior to presentation. Patient also complains of nausea without any vomiting. Here in the ER, patient had a CT abdomen that showed cholelithiasis with cholecystitis and surgery was consulted. Patient has been admitted for further evaluation. 01/10. Patient to go to the OR as per surgery on 01/12. Started patient on IV antibiotics. Clear liquid diet for now - Patient Problems (1) Acute cholecystitis Current Visit: Yes Status: Acute Plan to address problem: Continue IV antibiotics Continue IV hydration Clear liquid diet as tolerated Surgery recommendations appreciated. Plan for OR on 01/12. (2) Cholelithiasis Current Visit: Yes Status: Acute Plan to address problem: Plan for cholecystectomy on 01/12. Surgery recommendations appreciated Clear liquid diet for now (3) Hypertension Current Visit: Yes Status: Acute Plan to address problem: Continue valsartan Monitor blood pressure (4) DVT prophylaxis Current Visit: Yes Status: Acute Plan to address problem: Heparin 5000 units 3 times daily
--- NOTE | 2020-01-11 15:36 | Consultation ---
History of Present Illness Consult date: 01/11/20 Reason for consult: abdominal pain Requesting physician: FAUSTINA MAK Chief complaint: abdominal pain - History of present illness History of present illness: 69yo F resents to the emergency room due to acute onset of abdominal pain [address] evaluation showed evidence consistent with acute cholecystitis. General surgery is consulted. Patient reports this is the third time she has had significant upper abdominal pain. Last May, she presented to the emergency room with similar symptoms. She was diagnosed with constipation and sent home. 2 weeks ago she had a similar episode but it eventually went away on its own. Now, 2 days ago, she developed severe abdominal pain in the upper abdomen. It was associated with nausea but no vomiting. Denies any fevers or chills. As the pain would not subside, she decided to come to the emergency room for evaluation. She feels a little bit better now. Past History Past Medical History: hypertension Past Surgical History: Social history: denies: smoking, alcohol abuse Family history: no significant family history Medications and Allergies Allergies Allergy/AdvReac Type Severity Reaction Status Date / Time acetaminophen [From Vicodin] Allergy Rash Verified 04/29/18 07:44 hydrocodone [From Vicodin] Allergy Rash Verified 04/29/18 07:44 Home Medications Medication Instructions Recorded Confirmed Last Taken Type Losartan Potassium 50 mg PO DAILY 01/11/20 01/11/20 01/11/20 History Active Meds: Active Medications Acetaminophen (Tylenol) 650 mg PO Q4H PRN PRN Reason: Pain MILD(1-3)/Fever >100.5/[place] Sodium Chloride (Nacl 0.9% 1000 Ml) 1,000 mls @ 125 mls/hr IV ONCE ONE Stop: 01/11/20 19:44 Last Admin: 01/11/20 12:12 Dose: 125 mls/hr Documented by: Piperacillin Sod/Tazobactam Sod (Zosyn/Ns 4.5gm/100ml) 4.5 gm in 100 mls @ 200 mls/hr IV Q8HR MATT; Protocol Ondansetron HCl (Zofran) 4 mg IV Q8H PRN PRN Reason: Nausea And Vomiting Sodium Chloride (Sodium Chloride Flush Syringe 10 Ml) 10 ml IV BID MATT Sodium Chloride (Sodium Chloride Flush Syringe 10 Ml) 10 ml IV PRN PRN PRN Reason: LINE FLUSH Review of Systems - Constitutional no fever, no chills, no chronic pain - Cardiovascular no chest pain, no shortness of breath - Respiratory no cough - Gastrointestinal abdominal pain, nausea, dyspepsia/bloating, no vomiting, no change in bowel habits - Genitourinary Genitourinary: no dysuria - Muskuloskeletal no low back pain - Integumentary no rash, no pruritis, no redness, no sores, no wounds, no jaundice Exam Vital Signs Temp Pulse Resp BP Pulse Ox 98.7 F 100 H 20 172/95 97 01/11/20 07:53 01/11/20 07:53 01/11/20 07:53 01/11/20 07:53 01/11/20 07:53 - General physical appearance Positive: well developed, well nourished, no distress, no pain, other (Pleasant) - Eyes Positive: normal occular movement. Negative: icteric - Respiratory Positive: normal expansion, normal respiratory effort, clear to auscultation - Cardiovascular Rhythm: regular - Abdomen Abdomen: Present: soft, tender (Significant tenderness in the right upper quadrant. No significant pain in the rest of the abdomen.). Absent: distended, masses, guarding, rigid, wound - Integumentary no rash, no growths, no abnormal pigmentation - Neurologic Neurologic: alert and oriented to time, place and person, motor strength and sensation are grossly intact - Psychiatric Psychiatric: appropriate mood/affect, intact judgment & insight, cooperative Results - Labs 01/11/20 08:17 01/11/20 08:17 Abnormal lab results 01/11/20 01/11/20 01/11/20 Range/Units 08:17 08:17 10:33 WBC 21.8 H (4.5-11.0) K/mm3 Seg Neuts % (Manual) 90.0 H (40.0-70.0) % Lymphocytes % (Manual) 4.0 L (13.4-35.0) % Seg Neutrophils # Man 19.6 H (1.8-7.7) K/mm3 Lymphocytes # (Manual) 0.9 L (1.2-5.4) K/mm3 Monocytes # (Manual) 1.3 H (0.0-0.8) K/mm3 Creatinine 0.5 L (0.6-1.2) mg/dL Glucose 151 H (65-100) mg/dL Calcium 10.4 H (8.4-10.2) mg/dL Lipase 10 L (13-60) units/L Diabetes panel 01/11/20 Range/Units 08:17 Sodium 140 (137-145) mmol/L Potassium 3.8 (3.6-5.0) mmol/L Chloride 101.2 (98-107) mmol/L Carbon Dioxide 24 (22-30) mmol/L BUN 10 (7-17) mg/dL Creatinine 0.5 L (0.6-1.2) mg/dL Glucose 151 H (65-100) mg/dL Calcium 10.4 H (8.4-10.2) mg/dL AST 12 (5-40) units/L ALT 12 (7-56) units/L Alkaline Phosphatase 79 (35-129) units/L Total Protein 7.5 (6.3-8.2) g/dL Albumin 4.4 (3.9-5) g/dL Calcium panel 01/11/20 Range/Units 08:17 Calcium 10.4 H (8.4-10.2) mg/dL Albumin 4.4 (3.9-5) g/dL Pituitary panel 01/11/20 Range/Units 08:17 Sodium 140 (137-145) mmol/L Potassium 3.8 (3.6-5.0) mmol/L Chloride 101.2 (98-107) mmol/L Carbon Dioxide 24 (22-30) mmol/L BUN 10 (7-17) mg/dL Creatinine 0.5 L (0.6-1.2) mg/dL Glucose 151 H (65-100) mg/dL Calcium 10.4 H (8.4-10.2) mg/dL Adrenal panel 01/11/20 Range/Units 08:17 Sodium 140 (137-145) mmol/L Potassium 3.8 (3.6-5.0) mmol/L Chloride 101.2 (98-107) mmol/L Carbon Dioxide 24 (22-30) mmol/L BUN 10 (7-17) mg/dL Creatinine 0.5 L (0.6-1.2) mg/dL Glucose 151 H (65-100) mg/dL Calcium 10.4 H (8.4-10.2) mg/dL Total Bilirubin 0.70 (0.1-1.2) mg/dL AST 12 (5-40) units/L ALT 12 (7-56) units/L Alkaline Phosphatase 79 (35-129) units/L Total Protein 7.5 (6.3-8.2) g/dL Albumin 4.4 (3.9-5) g/dL - Imaging CT scan - abdomen: report reviewed, image reviewed CT scan - pelvis: report reviewed, image reviewed Assessment and Plan - Patient Problems (1) Acute cholecystitis Current Visit: Yes Status: Acute Plan to address problem: Pt stable. Based on her history, I think she may have acute on chronic cholecystitis. She will need to be resuscitated and receive IV antibiotics prior to surgery. Procedure, risk, benefits for a laparoscopic cholecystectomy were discussed. All questions were answered. Consent was obtained. We will follow her progress over the next couple days to determine the best time for surgery. Please call with any questions. Time=30min
[2020-01-11] MEDS ORDERED: PIPERACIL/TAZOBACTA 4.5/NS 100 4.5 GM/100 ML VIAL IV SCH (22:00)
[2020-01-11] MEDS: PIPERACIL/TAZOBACTA 4.5/NS 100 4.5 GM/100 ML VIAL IV SCH (22:02)
[2020-01-11] MEDS: HEPARIN 5,000 UNIT/1 ML VIAL SUB-Q SCH (22:03)
[2020-01-11] MEDS ORDERED: LOSARTAN 50 MG TAB PO ONE (22:30)
[2020-01-11] MEDS ORDERED: MORPHINE 2 MG/1 ML INJ IV ONE (22:45)
[2020-01-12] MEDS: PIPERACIL/TAZOBACTA 4.5/NS 100 4.5 GM/100 ML VIAL IV SCH ×5 (06:49→23:57)
[2020-01-12] MEDS ORDERED: MORPHINE 2 MG/1 ML INJ IV ONE (06:57)
[2020-01-12 07:30] LABS: Red Blood Count 4.28 M/mm3 (3.65-5.03)
[2020-01-12] MEDS: HEPARIN 5,000 UNIT/1 ML VIAL SUB-Q SCH ×3 (07:30→23:58)
[2020-01-12 07:31] LABS: Basophils # (Auto) 0.1 K/mm3 (0.0-0.1); Basophils % (Auto) 0.3 % (0.0-1.8); Eosinophils # (Auto) 0.1 K/mm3 (0.0-0.4); Eosinophils % (Auto) 0.5 % (0.0-4.3); Hematocrit 36.9 % (30.3-42.9); Hemoglobin 12.2 gm/dl (10.1-14.3); Lymphocytes % (Auto) 5.6 % (13.4-35.0); Mean Corpuscular HGB Conc 33 % (30-34); Mean Corpuscular Volume 86 fl (79-97); Monocytes % (Auto) 6.1 % (0.0-7.3); Platelet Count 246 K/mm3 (140-440); Red Cell Distribution Width 15.2 % (13.2-15.2)
[2020-01-12 08:16] LABS: Alanine Aminotransferase 39 units/L (7-56); Albumin 3.8 g/dL (3.9-5); Blood Urea Nitrogen 10 mg/dL (7-17); Calcium 9.8 mg/dL (8.4-10.2); Hemolysis Index 0
[2020-01-12 08:17] LABS: BUN/Creatinine Ratio 20
--- NOTE | 2020-01-12 12:16 | Progress Note ---
Assessment and Plan - Patient Problems (1) Acute cholecystitis Current Visit: Yes Status: Acute Plan to address problem: Pt stable. Right improvement in symptoms and labs. We will plan for surgery tomorrow. All questions answered. N.p.o. after midnight. Please call with questions. time=10min Subjective Date of service: 01/12/20 Patient Reports: Positive: no new complaints, feels better (slightly) Objective Vital Signs - 12hr 01/12/20 01/12/20 01/12/20 04:31 07:02 11:34 Temperature 99.0 F 98.6 F 99.2 F Pulse Rate 78 74 84 Respiratory 18 18 18 Rate Blood Pressure 136/68 Blood Pressure 171/69 144/63 [Left] O2 Sat by Pulse 92 99 98 Oximetry - General physical appearance no distress, no pain - Respiratory normal expansion, normal respiratory effort - Abdomen soft - Psychiatric oriented to time, oriented to person, oriented to place, speech is normal, memory intact - Labs 01/12/20 06:43 01/12/20 06:43 Diabetes panel 01/12/20 Range/Units 06:43 Sodium 140 (137-145) mmol/L Potassium 3.6 (3.6-5.0) mmol/L Chloride 102.6 (98-107) mmol/L Carbon Dioxide 24 (22-30) mmol/L BUN 10 (7-17) mg/dL Creatinine 0.5 L (0.6-1.2) mg/dL Glucose 110 H (65-100) mg/dL Calcium 9.8 (8.4-10.2) mg/dL AST 49 H (5-40) units/L ALT 39 (7-56) units/L Alkaline Phosphatase 147 H (35-129) units/L Total Protein 6.8 (6.3-8.2) g/dL Albumin 3.8 L (3.9-5) g/dL Calcium panel 01/12/20 Range/Units 06:43 Calcium 9.8 (8.4-10.2) mg/dL Albumin 3.8 L (3.9-5) g/dL Pituitary panel 01/12/20 Range/Units 06:43 Sodium 140 (137-145) mmol/L Potassium 3.6 (3.6-5.0) mmol/L Chloride 102.6 (98-107) mmol/L Carbon Dioxide 24 (22-30) mmol/L BUN 10 (7-17) mg/dL Creatinine 0.5 L (0.6-1.2) mg/dL Glucose 110 H (65-100) mg/dL Calcium 9.8 (8.4-10.2) mg/dL Adrenal panel 01/12/20 Range/Units 06:43 Sodium 140 (137-145) mmol/L Potassium 3.6 (3.6-5.0) mmol/L Chloride 102.6 (98-107) mmol/L Carbon Dioxide 24 (22-30) mmol/L BUN 10 (7-17) mg/dL Creatinine 0.5 L (0.6-1.2) mg/dL Glucose 110 H (65-100) mg/dL Calcium 9.8 (8.4-10.2) mg/dL Total Bilirubin 0.60 (0.1-1.2) mg/dL AST 49 H (5-40) units/L ALT 39 (7-56) units/L Alkaline Phosphatase 147 H (35-129) units/L Total Protein 6.8 (6.3-8.2) g/dL Albumin 3.8 L (3.9-5) g/dL
[2020-01-12] MEDS ORDERED: traMADol 50 MG TAB PO PRN (13:07)
--- NOTE | 2020-01-12 13:18 | Progress Note ---
Assessment and Plan Assessment and plan: 69-year-old female with a medical history of hypertension presented to the emergency room with a chief complaint of abdominal pain that started 3 days prior to presentation. Patient also complains of nausea without any vomiting. Here in the ER, patient had a CT abdomen that showed cholelithiasis with cholecystitis and surgery was consulted. Patient has been admitted for further evaluation. 01/10. Patient to go to the OR as per surgery on 01/12. Started patient on IV antibiotics. Clear liquid diet for now 01/21. Patient seen and examined at bedside this morning. Abdominal pain is slightly improved. On antibiotics. WBC trending down-17. She is tolerating clear liquid diet. Seen by surgery. Plan for laparoscopic cholecystectomy tomorrow. N.p.o. after midnight - Patient Problems (1) Acute cholecystitis Current Visit: Yes Status: Acute Plan to address problem: Continue IV antibiotics Continue IV hydration Clear liquid diet as tolerated Surgery recommendations appreciated. Plan for OR on 01/12. N.p.o. after midnight (2) Cholelithiasis Current Visit: Yes Status: Acute Plan to address problem: Plan for cholecystectomy on 01/12. Surgery recommendations appreciated Clear liquid diet for now N.p.o. after midnight (3) Hypertension Current Visit: Yes Status: Acute Qualifiers: Hypertension type: essential hypertension Qualified Code(s): I10 - Essential (primary) hypertension Plan to address problem: Continue losartan Monitor blood pressure (4) DVT prophylaxis Current Visit: Yes Status: Acute Plan to address problem: Heparin 5000 units 3 times daily History Interval history: Patient seen and examined at bedside this morning. Abdominal pain is improved. She is tolerating clear liquid diet. Seen by surgery. Plan for laparoscopic cholecystectomy tomorrow. N.p.o. after midnight Hospitalist Physical - Constitutional Vitals: Temp Pulse Resp BP Pulse Ox 99.2 F 84 18 144/63 98 01/12/20 11:34 01/12/20 11:34 01/12/20 11:34 01/12/20 11:34 01/12/20 11:34 General appearance: Present: no acute distress, well-nourished - EENT Eyes: Present: PERRL - Neck Neck: Present: supple - Respiratory Respiratory: bilateral: CTA - Cardiovascular Rhythm: regular Heart Sounds: Present: S1 & S2 - Extremities Extremities: no ischemia, No edema - Abdominal General gastrointestinal: soft, tender (more on the right side), non-distended, normal bowel sounds - Neurologic Neurologic: CNII-XII intact Results - Labs CBC & Chem 7: 01/12/20 06:43 01/12/20 06:43 Labs: Laboratory Last Values WBC 17.1 K/mm3 (4.5-11.0) H 01/12/20 06:43 RBC 4.28 M/mm3 (3.65-5.03) 01/12/20 06:43 Hgb 12.2 gm/dl (10.1-14.3) 01/12/20 06:43 Hct 36.9 % (30.3-42.9) 01/12/20 06:43 MCV 86 fl (79-97) 01/12/20 06:43 MCH 29 pg (28-32) 01/12/20 06:43 MCHC 33 % (30-34) 01/12/20 06:43 RDW 15.2 % (13.2-15.2) 01/12/20 06:43 Plt Count 246 K/mm3 (140-440) 01/12/20 06:43 Lymph % (Auto) 5.6 % (13.4-35.0) L 01/12/20 06:43 [place] % (Auto) 6.1 % (0.0-7.3) 01/12/20 06:43 Eos % (Auto) 0.5 % (0.0-4.3) 01/12/20 06:43 Baso % (Auto) 0.3 % (0.0-1.8) 01/12/20 06:43 Lymph # 1.0 K/mm3 (1.2-5.4) L 01/12/20 06:43 [place] # 1.0 K/mm3 (0.0-0.8) H 01/12/20 06:43 Eos # 0.1 K/mm3 (0.0-0.4) 01/12/20 06:43 Baso # 0.1 K/mm3 (0.0-0.1) 01/12/20 06:43 Add Manual Diff Complete 01/11/20 08:17 Total Counted 100 01/11/20 08:17 Seg Neutrophils % 87.5 % (40.0-70.0) H 01/12/20 06:43 Seg Neuts % (Manual) 90.0 % (40.0-70.0) H 01/11/20 08:17 Band Neutrophils % 0 % 01/11/20 08:17 Lymphocytes % (Manual) 4.0 % (13.4-35.0) L 01/11/20 08:17 Reactive Lymphs % (Man) 0 % 01/11/20 08:17 Monocytes % (Manual) 6.0 % (0.0-7.3) 01/11/20 08:17 Eosinophils % (Manual) 0 % (0.0-4.3) 01/11/20 08:17 Basophils % (Manual) 0 % (0.0-1.8) 01/11/20 08:17 Metamyelocytes % 0 % 01/11/20 08:17 Myelocytes % 0 % 01/11/20 08:17 Promyelocytes % 0 % 01/11/20 08:17 Blast Cells % 0 % 01/11/20 08:17 Nucleated RBC % Not Reportable 01/11/20 08:17 Seg Neutrophils # 15.0 K/mm3 (1.8-7.7) H 01/12/20 06:43 Seg Neutrophils # Man 19.6 K/mm3 (1.8-7.7) H 01/11/20 08:17 Band Neutrophils # 0.0 K/mm3 01/11/20 08:17 Lymphocytes # (Manual) 0.9 K/mm3 (1.2-5.4) L 01/11/20 08:17 Abs React Lymphs (Man) 0.0 K/mm3 01/11/20 08:17 Monocytes # (Manual) 1.3 K/mm3 (0.0-0.8) H 01/11/20 08:17 Eosinophils # (Manual) 0.0 K/mm3 (0.0-0.4) 01/11/20 08:17 Basophils # (Manual) 0.0 K/mm3 (0.0-0.1) 01/11/20 08:17 Metamyelocytes # 0.0 K/mm3 01/11/20 08:17 Myelocytes # 0.0 K/mm3 01/11/20 08:17 Promyelocytes # 0.0 K/mm3 01/11/20 08:17 Blast Cells # 0.0 K/mm3 01/11/20 08:17 WBC Morphology Not Reportable 01/11/20 08:17 Hypersegmented Neuts Not Reportable 01/11/20 08:17 Hyposegmented Neuts Not Reportable 01/11/20 08:17 Hypogranular Neuts Not Reportable 01/11/20 08:17 Smudge Cells Not Reportable 01/11/20 08:17 Toxic Granulation Not Reportable 01/11/20 08:17 Toxic Vacuolation Few 01/11/20 08:17 Dohle Bodies Not Reportable 01/11/20 08:17 Pelger-Huet Anomaly Not Reportable 01/11/20 08:17 Sawyer Rods Not Reportable 01/11/20 08:17 Platelet Estimate Consistent w auto 01/11/20 08:17 Clumped Platelets Not Reportable 01/11/20 08:17 Plt Clumps, EDTA Not Reportable 01/11/20 08:17 Large Platelets Not Reportable 01/11/20 08:17 Giant Platelets Not Reportable 01/11/20 08:17 Platelet Satelliting Not Reportable 01/11/20 08:17 Plt Morphology Comment Not Reportable 01/11/20 08:17 RBC Morphology Normal 01/11/20 08:17 Dimorphic RBCs Not Reportable 01/11/20 08:17 Polychromasia Not Reportable 01/11/20 08:17 Hypochromasia Not Reportable 01/11/20 08:17 Poikilocytosis Not Reportable 01/11/20 08:17 Anisocytosis Not Reportable 01/11/20 08:17 Microcytosis Not Reportable 01/11/20 08:17 Macrocytosis Not Reportable 01/11/20 08:17 Spherocytes Not Reportable 01/11/20 08:17 Pappenheimer Bodies Not Reportable 01/11/20 08:17 Sickle Cells Not Reportable 01/11/20 08:17 Target Cells Not Reportable 01/11/20 08:17 Tear Drop Cells Not Reportable 01/11/20 08:17 Ovalocytes Not Reportable 01/11/20 08:17 Helmet Cells Not Reportable 01/11/20 08:17 [place] Bodies Not Reportable 01/11/20 08:17 [place] Rings Not Reportable 01/11/20 08:17 Ally Cells Not Reportable 01/11/20 08:17 Bite Cells Not Reportable 01/11/20 08:17 Crenated Cell Not Reportable 01/11/20 08:17 Elliptocytes Not Reportable 01/11/20 08:17 Acanthocytes (Spur) Not Reportable 01/11/20 08:17 Rouleaux Not Reportable 01/11/20 08:17 Hemoglobin C Crystals Not Reportable 01/11/20 08:17 Schistocytes Not Reportable 01/11/20 08:17 Malaria parasites Not Reportable 01/11/20 08:17 [place] Bodies Not Reportable 01/11/20 08:17 Hem Pathologist Commnt No 01/11/20 08:17 Sodium 140 mmol/L (137-145) 01/12/20 06:43 Potassium 3.6 mmol/L (3.6-5.0) 01/12/20 06:43 Chloride 102.6 mmol/L (98-107) 01/12/20 06:43 Carbon Dioxide 24 mmol/L (22-30) 01/12/20 06:43 Anion Gap 17 mmol/L 01/12/20 06:43 BUN 10 mg/dL (7-17) 01/12/20 06:43 Creatinine 0.5 mg/dL (0.6-1.2) L 01/12/20 06:43 Estimated GFR > 60 ml/min 01/12/20 06:43 BUN/Creatinine Ratio 20 % 01/12/20 06:43 Glucose 110 mg/dL (65-100) H 01/12/20 06:43 Lactic Acid 0.90 mmol/L (0.7-2.0) 01/11/20 10:33 Calcium 9.8 mg/dL (8.4-10.2) 01/12/20 06:43 Total Bilirubin 0.60 mg/dL (0.1-1.2) 01/12/20 06:43 AST 49 units/L (5-40) H 01/12/20 06:43 ALT 39 units/L (7-56) 01/12/20 06:43 Alkaline Phosphatase 147 units/L (35-129) H 01/12/20 06:43 Total Protein 6.8 g/dL (6.3-8.2) 01/12/20 06:43 Albumin 3.8 g/dL (3.9-5) L 01/12/20 06:43 Albumin/Globulin Ratio 1.3 % 01/12/20 06:43 Lipase 10 units/L (13-60) L 01/11/20 10:33 Urine Color Yellow (Yellow) 01/11/20 Unknown Urine Turbidity Clear (Clear) 01/11/20 Unknown Urine pH 5.0 (5.0-7.0) 01/11/20 Unknown Ur Specific [address] 1.026 (1.003-1.030) 01/11/20 Unknown Urine Protein 30 mg/dl mg/dL (Negative) 01/11/20 Unknown Urine Glucose (UA) Neg mg/dL (Negative) 01/11/20 Unknown Urine Ketones 20 mg/dL (Negative) 01/11/20 Unknown Urine Blood Sm (Negative) 01/11/20 Unknown Urine Nitrite Neg (Negative) 01/11/20 Unknown Urine Bilirubin Neg (Negative) 01/11/20 Unknown Urine Urobilinogen < 2.0 mg/dL (<2.0) 01/11/20 Unknown Ur Leukocyte Esterase Neg (Negative) 01/11/20 Unknown Urine WBC (Auto) 3.0 /HPF (0.0-6.0) 01/11/20 Unknown Urine RBC (Auto) 2.0 /HPF (0.0-6.0) 01/11/20 Unknown U Epithel Cells (Auto) 2.0 /HPF (0-13.0) 01/11/20 Unknown Urine Bacteria (Auto) 1+ /HPF (Negative) 01/11/20 Unknown Urine Mucus 1+ /HPF 01/11/20 Unknown Microbiology: Microbiology 01/11/20 10:33 Peripheral/Venous Blood Culture - Preliminary NO GROWTH AFTER 24 HOURS 01/11/20 10:33 Peripheral/Venous Blood Culture - Preliminary NO GROWTH AFTER 24 HOURS Massey/IV: Voiding Method Toilet IV Catheter Type [Left Forearm INT / Saline Lock ] IV Catheter Type [Right Peripheral IV Antecubital] Active Medications - Current Medications Current Medications: Generic Name Dose Route Start Last Admin Trade Name Freq PRN Reason Stop Dose Admin Acetaminophen 650 mg 01/11/20 14:56 Tylenol PO Q4H PRN Pain MILD(1-3)/Fever >100.5/[place] Heparin Sodium (Porcine) 5,000 unit 01/11/20 22:00 01/12/20 07:30 Heparin SUB-Q 5,000 unit Q8HR MATT Administration Piperacillin Sod/Tazobactam Sod 4.5 gm in 100 mls @ 200 mls/hr 01/11/20 18:00 01/12/20 11:30 Zosyn/Ns 4.5gm/100ml IV 200 mls/hr Q6HR MATT Administration Protocol Morphine Sulfate 2 mg 01/12/20 13:05 Morphine IV Q3H PRN Pain, Moderate (4-6) Ondansetron HCl 4 mg 01/11/20 14:56 Zofran IV Q8H PRN Nausea And Vomiting Sodium Chloride 10 ml 01/11/20 15:00 01/11/20 22:02 Sodium Chloride Flush Syringe 10 Ml IV 10 ml BID MATT Administration Sodium Chloride 10 ml 01/11/20 14:56 Sodium Chloride Flush Syringe 10 Ml IV PRN PRN LINE FLUSH Tramadol HCl 25 mg 01/12/20 13:07 Ultram PO Q4H PRN Pain, Moderate (4-6)
[2020-01-12] MEDS: LOSARTAN 50 MG TAB PO SCH (13:38)
[2020-01-12] MEDS: MORPHINE 2 MG/1 ML INJ IV PRN ×2 (13:39→20:25)
[2020-01-13] MEDS: MORPHINE 2 MG/1 ML INJ IV PRN ×2 (00:01→05:38)
[2020-01-13 01:48] LABS: Basophils % (Auto) 0.2 % (0.0-1.8); Eosinophils # (Auto) 0.2 K/mm3 (0.0-0.4); Eosinophils % (Auto) 1.1 % (0.0-4.3); Hematocrit 33.6 % (30.3-42.9); Hemoglobin 11.4 gm/dl (10.1-14.3); Lymphocytes % (Auto) 6.7 % (13.4-35.0); Mean Corpuscular HGB Conc 34 % (30-34); Mean Corpuscular Volume 87 fl (79-97); Monocytes # (Auto) 0.9 K/mm3 (0.0-0.8); Monocytes % (Auto) 5.7 % (0.0-7.3); Platelet Count 232 K/mm3 (140-440); Red Blood Count 3.87 M/mm3 (3.65-5.03); Red Cell Distribution Width 14.6 % (13.2-15.2)
[2020-01-13 02:11] LABS: Alanine Aminotransferase 76 units/L (7-56); Albumin 3.4 g/dL (3.9-5); Blood Urea Nitrogen 8 mg/dL (7-17); Calcium 9.4 mg/dL (8.4-10.2); Hemolysis Index 0
[2020-01-13 02:14] LABS: BUN/Creatinine Ratio 16
[2020-01-13] MEDS: PIPERACIL/TAZOBACTA 4.5/NS 100 4.5 GM/100 ML VIAL IV SCH ×3 (05:59→17:28)
[2020-01-13] MEDS: HEPARIN 5,000 UNIT/1 ML VIAL SUB-Q SCH ×3 (05:59→22:13)
--- NOTE | 2020-01-13 07:28 | Progress Note ---
Assessment and Plan Assessment and plan: 69-year-old female with a medical history of hypertension presented to the emergency room with a chief complaint of abdominal pain that started 3 days prior to presentation. Patient also complains of nausea without any vomiting. Here in the ER, patient had a CT abdomen that showed cholelithiasis with c holecystitis and surgery was consulted. Patient has been admitted for further evaluation. 01/10. Patient to go to the OR as per surgery on 01/12. Started patient on IV antibiotics. Clear liquid diet for now 01/11. Patient seen and examined at bedside this morning. Abdominal pain is slightly improved. On antibiotics. WBC trending down-17. She is tolerating clear liquid diet. Seen by surgery. Plan for laparoscopic cholecystectomy tomorrow. N.p.o. after midnight 01/12: To OR today for laparoscopic cholecystectomy, will discuss with surgery post op about discharge plans. WBC continues to trend down. Stool softener - Patient Problems (1) Acute cholecystitis Current Visit: Yes Status: Acute Plan to address problem: Continue IV antibiotics Continue IV hydration Clear liquid diet as tolerated Surgery recommendations appreciated. Plan for OR on 01/12. N.p.o. after midnight (2) Cholelithiasis Current Visit: Yes Status: Acute Plan to address problem: Plan for cholecystectomy on 01/12. Surgery recommendations appreciated Clear liquid diet for now N.p.o. after midnight (3) Hypertension Current Visit: Yes Status: Acute Qualifiers: Hypertension type: essential hypertension Qualified Code(s): I10 - Essential (primary) hypertension Plan to address problem: Continue losartan Monitor blood pressure (4) Constiption Start stool softner (5)DVT prophylaxis Current Visit: Yes Status: Acute Plan to address problem: Heparin 5000 units 3 times daily History Interval history: Patient seen and examined at bedside this morning. Abdominal pain is improved. NPO for planned surgery today. Reported constipation Hospitalist Physical - Physical exam Narrative exam: General appearance: Present: no acute distress, well-nourished, Sitting up - EENT Eyes: Present: PERRL - Neck Neck: Present: supple - Respiratory Respiratory: bilateral: CTA - Cardiovascular Rhythm: regular Heart Sounds: Present: S1 & S2 - Extremities Extremities: no ischemia, No edema - Abdominal General gastrointestinal: soft, tender (more on the right side), non-distended, normal bowel sounds - Neurologic Neurologic: CNII-XII intact - Constitutional Vitals: Temp Pulse Resp BP Pulse Ox 98.9 F 70 17 100/59 97 01/13/20 05:53 01/13/20 05:53 01/13/20 05:53 01/13/20 05:53 01/13/20 05:53 General appearance: Present: no acute distress, well-nourished Results - Labs CBC & Chem 7: 01/13/20 00:34 01/13/20 00:34 Labs: Laboratory Last Values WBC 15.6 K/mm3 (4.5-11.0) H 01/13/20 00:34 RBC 3.87 M/mm3 (3.65-5.03) 01/13/20 00:34 Hgb 11.4 gm/dl (10.1-14.3) 01/13/20 00:34 Hct 33.6 % (30.3-42.9) 01/13/20 00:34 MCV 87 fl (79-97) 01/13/20 00:34 MCH 29 pg (28-32) 01/13/20 00:34 MCHC 34 % (30-34) 01/13/20 00:34 RDW 14.6 % (13.2-15.2) 01/13/20 00:34 Plt Count 232 K/mm3 (140-440) 01/13/20 00:34 Lymph % (Auto) 6.7 % (13.4-35.0) L 01/13/20 00:34 [place] % (Auto) 5.7 % (0.0-7.3) 01/13/20 00:34 Eos % (Auto) 1.1 % (0.0-4.3) 01/13/20 00:34 Baso % (Auto) 0.2 % (0.0-1.8) 01/13/20 00:34 Lymph # 1.0 K/mm3 (1.2-5.4) L 01/13/20 00:34 [place] # 0.9 K/mm3 (0.0-0.8) H 01/13/20 00:34 Eos # 0.2 K/mm3 (0.0-0.4) 01/13/20 00:34 Baso # 0.0 K/mm3 (0.0-0.1) 01/13/20 00:34 Add Manual Diff Complete 01/11/20 08:17 Total Counted 100 01/11/20 08:17 Seg Neutrophils % 86.3 % (40.0-70.0) H 01/13/20 00:34 Seg Neuts % (Manual) 90.0 % (40.0-70.0) H 01/11/20 08:17 Band Neutrophils % 0 % 01/11/20 08:17 Lymphocytes % (Manual) 4.0 % (13.4-35.0) L 01/11/20 08:17 Reactive Lymphs % (Man) 0 % 01/11/20 08:17 Monocytes % (Manual) 6.0 % (0.0-7.3) 01/11/20 08:17 Eosinophils % (Manual) 0 % (0.0-4.3) 01/11/20 08:17 Basophils % (Manual) 0 % (0.0-1.8) 01/11/20 08:17 Metamyelocytes % 0 % 01/11/20 08:17 Myelocytes % 0 % 01/11/20 08:17 Promyelocytes % 0 % 01/11/20 08:17 Blast Cells % 0 % 01/11/20 08:17 Nucleated RBC % Not Reportable 01/11/20 08:17 Seg Neutrophils # 13.5 K/mm3 (1.8-7.7) H 01/13/20 00:34 Seg Neutrophils # Man 19.6 K/mm3 (1.8-7.7) H 01/11/20 08:17 Band Neutrophils # 0.0 K/mm3 01/11/20 08:17 Lymphocytes # (Manual) 0.9 K/mm3 (1.2-5.4) L 01/11/20 08:17 Abs React Lymphs (Man) 0.0 K/mm3 01/11/20 08:17 Monocytes # (Manual) 1.3 K/mm3 (0.0-0.8) H 01/11/20 08:17 Eosinophils # (Manual) 0.0 K/mm3 (0.0-0.4) 01/11/20 08:17 Basophils # (Manual) 0.0 K/mm3 (0.0-0.1) 01/11/20 08:17 Metamyelocytes # 0.0 K/mm3 01/11/20 08:17 Myelocytes # 0.0 K/mm3 01/11/20 08:17 Promyelocytes # 0.0 K/mm3 01/11/20 08:17 Blast Cells # 0.0 K/mm3 01/11/20 08:17 WBC Morphology Not Reportable 01/11/20 08:17 Hypersegmented Neuts Not Reportable 01/11/20 08:17 Hyposegmented Neuts Not Reportable 01/11/20 08:17 Hypogranular Neuts Not Reportable 01/11/20 08:17 Smudge Cells Not Reportable 01/11/20 08:17 Toxic Granulation Not Reportable 01/11/20 08:17 Toxic Vacuolation Few 01/11/20 08:17 Dohle Bodies Not Reportable 01/11/20 08:17 Pelger-Huet Anomaly Not Reportable 01/11/20 08:17 Sawyer Rods Not Reportable 01/11/20 08:17 Platelet Estimate Consistent w auto 01/11/20 08:17 Clumped Platelets Not Reportable 01/11/20 08:17 Plt Clumps, EDTA Not Reportable 01/11/20 08:17 Large Platelets Not Reportable 01/11/20 08:17 Giant Platelets Not Reportable 01/11/20 08:17 Platelet Satelliting Not Reportable 01/11/20 08:17 Plt Morphology Comment Not Reportable 01/11/20 08:17 RBC Morphology Normal 01/11/20 08:17 Dimorphic RBCs Not Reportable 01/11/20 08:17 Polychromasia Not Reportable 01/11/20 08:17 Hypochromasia Not Reportable 01/11/20 08:17 Poikilocytosis Not Reportable 01/11/20 08:17 Anisocytosis Not Reportable 01/11/20 08:17 Microcytosis Not Reportable 01/11/20 08:17 Macrocytosis Not Reportable 01/11/20 08:17 Spherocytes Not Reportable 01/11/20 08:17 Pappenheimer Bodies Not Reportable 01/11/20 08:17 Sickle Cells Not Reportable 01/11/20 08:17 Target Cells Not Reportable 01/11/20 08:17 Tear Drop Cells Not Reportable 01/11/20 08:17 Ovalocytes Not Reportable 01/11/20 08:17 Helmet Cells Not Reportable 01/11/20 08:17 [place] Bodies Not Reportable 01/11/20 08:17 Crowder Rings Not Reportable 01/11/20 08:17 [place] Cells Not Reportable 01/11/20 08:17 Bite Cells Not Reportable 01/11/20 08:17 Crenated Cell Not Reportable 01/11/20 08:17 Elliptocytes Not Reportable 01/11/20 08:17 Acanthocytes (Spur) Not Reportable 01/11/20 08:17 Rouleaux Not Reportable 01/11/20 08:17 Hemoglobin C Crystals Not Reportable 01/11/20 08:17 Schistocytes Not Reportable 01/11/20 08:17 Malaria parasites Not Reportable 01/11/20 08:17 [place] Bodies Not Reportable 01/11/20 08:17 Hem Pathologist Commnt No 01/11/20 08:17 Sodium 142 mmol/L (137-145) 01/13/20 00:34 Potassium 3.5 mmol/L (3.6-5.0) L 01/13/20 00:34 Chloride 103.9 mmol/L (98-107) 01/13/20 00:34 Carbon Dioxide 22 mmol/L (22-30) 01/13/20 00:34 Anion Gap 20 mmol/L 01/13/20 00:34 BUN 8 mg/dL (7-17) 01/13/20 00:34 Creatinine 0.5 mg/dL (0.6-1.2) L 01/13/20 00:34 Estimated GFR > 60 ml/min 01/13/20 00:34 BUN/Creatinine Ratio 16 % 01/13/20 00:34 Glucose 123 mg/dL (65-100) H 01/13/20 00:34 Lactic Acid 0.90 mmol/L (0.7-2.0) 01/11/20 10:33 Calcium 9.4 mg/dL (8.4-10.2) 01/13/20 00:34 Total Bilirubin 0.70 mg/dL (0.1-1.2) 01/13/20 00:34 AST 82 units/L (5-40) H 01/13/20 00:34 ALT 76 units/L (7-56) H 01/13/20 00:34 Alkaline Phosphatase 215 units/L (35-129) H 01/13/20 00:34 Total Protein 6.6 g/dL (6.3-8.2) 01/13/20 00:34 Albumin 3.4 g/dL (3.9-5) L 01/13/20 00:34 Albumin/Globulin Ratio 1.1 % 01/13/20 00:34 Lipase 10 units/L (13-60) L 01/11/20 10:33 Urine Color Yellow (Yellow) 01/11/20 Unknown Urine Turbidity Clear (Clear) 01/11/20 Unknown Urine pH 5.0 (5.0-7.0) 01/11/20 Unknown Ur Specific [place] 1.026 (1.003-1.030) 01/11/20 Unknown Urine Protein 30 mg/dl mg/dL (Negative) 01/11/20 Unknown Urine Glucose (UA) Neg mg/dL (Negative) 01/11/20 Unknown Urine Ketones 20 mg/dL (Negative) 01/11/20 Unknown Urine Blood Sm (Negative) 01/11/20 Unknown Urine Nitrite Neg (Negative) 01/11/20 Unknown Urine Bilirubin Neg (Negative) 01/11/20 Unknown Urine Urobilinogen < 2.0 mg/dL (<2.0) 01/11/20 Unknown Ur Leukocyte Esterase Neg (Negative) 01/11/20 Unknown Urine WBC (Auto) 3.0 /HPF (0.0-6.0) 01/11/20 Unknown Urine RBC (Auto) 2.0 /HPF (0.0-6.0) 01/11/20 Unknown U Epithel Cells (Auto) 2.0 /HPF (0-13.0) 01/11/20 Unknown Urine Bacteria (Auto) 1+ /HPF (Negative) 01/11/20 Unknown Urine Mucus 1+ /HPF 01/11/20 Unknown Microbiology: Microbiology 01/11/20 10:33 Peripheral/Venous Blood Culture - Preliminary NO GROWTH AFTER 24 HOURS 01/11/20 10:33 Peripheral/Venous Blood Culture - Preliminary NO GROWTH AFTER 24 HOURS Massey/IV: Voiding Method Toilet IV Catheter Type [Left Forearm INT / Saline Lock ] IV Catheter Type [Right Peripheral IV Antecubital] Active Medications - Current Medications Current Medications: Generic Name Dose Route Start Last Admin Trade Name Freq PRN Reason Stop Dose Admin Acetaminophen 650 mg 01/11/20 14:56 Tylenol PO Q4H PRN Pain MILD(1-3)/Fever >100.5/T[place] Heparin Sodium (Porcine) 5,000 unit 01/11/20 22:00 01/13/20 05:59 Heparin SUB-Q Not Given Q8HR MATT Piperacillin Sod/Tazobactam Sod 4.5 gm in 100 mls @ 200 mls/hr 01/11/20 18:00 01/13/20 05:59 Zosyn/Ns 4.5gm/100ml IV 200 mls/hr Q6HR MATT Administration Protocol Losartan Potassium 50 mg 01/12/20 14:00 01/12/20 13:38 Cozaar PO 50 mg QDAY MATT Administration Morphine Sulfate 2 mg 01/12/20 13:05 01/13/20 05:38 Morphine IV 2 mg Q3H PRN Administration Pain, Moderate (4-6) Ondansetron HCl 4 mg 01/11/20 14:56 Zofran IV Q8H PRN Nausea And Vomiting Sodium Chloride 10 ml 01/11/20 15:00 01/12/20 23:59 Sodium Chloride Flush Syringe 10 Ml IV 10 ml BID MATT Administration Sodium Chloride 10 ml 01/11/20 14:56 01/12/20 17:23 Sodium Chloride Flush Syringe 10 Ml IV 10 ml PRN PRN Administration LINE FLUSH Tramadol HCl 25 mg 01/12/20 13:07 Ultram PO Q4H PRN Pain, Moderate (4-6)
[2020-01-13] MEDS ORDERED: BUPIVACAINE/PF (0.5%) 5 MG/1 ML 30 ML VIAL INFILTRATI ONE ×2 (10:09→11:22)
[2020-01-13] MEDS ORDERED: LIDOCAINE 1%/EPINEPHRINE 1:100,000 VIAL (20 ML) INFILTRATI ONE ×2 (10:09→11:21)
--- NOTE | 2020-01-13 10:10 | Anesthesia Consultation ---
Anesthesia Consult and Med Hx Date of service: 01/13/20 - Airway Anesthetic Teeth Evaluation: Good ROM Head & Neck: Adequate Mental/Hyoid Distance: Adequate Mallampati Class: Class II Intubation Access Assessment: Good - Pulmonary Exam CTA: Yes - Cardiac Exam Cardiac Exam: RRR - Pre-Operative Health Status ASA Pre-Surgery Classification: ASA2 Proposed Anesthetic Plan: General - Pulmonary Hx Smoking: No Hx Asthma: No Hx Respiratory Symptoms: No SOB: No COPD: No Home Oxygen Therapy: No Hx Pneumonia: No Hx Sleep Apnea: No - Cardiovascular System Hx Hypertension: Yes Hx Coronary Artery Disease: No Hx Heart Attack/AMI: No Hx Angina: No Hx Percutaneous Transluminal Coronary Angioplasty (PTCA): No Hx Cardia Arrhythmia: No Hx Pacemaker: No Hx Internal Defibrillator: No Hx Valvular Heart Disease: No Hx Heart Murmur: No - Central Nervous System Hx Neuromuscular Disorder: No Hx Seizures: No CVA: No Hx Back Pain: No Hx Psychiatric Problems: No - Gastrointestinal Hx Ulcer: No Hx Gastroesophageal Reflux Disease: No - Endocrine Hx Renal Disease: No Hx End Stage Renal Disease: No Hx Cirrhosis: No Hx Liver Disease: No Hx Insulin Dependent Diabetes: No Hx Non-Insulin Dependent Diabetes: No Hx Thyroid Disease: No Hx Hypothyroidism: No Hx Hyperthyroidism: No - Hematic Hx Anemia: No Hx Sickle Cell Disease: No - Other Systems Hx Alcohol Use: No Hx Substance Use: No Hx Cancer: No Hx Obesity: No
--- NOTE | 2020-01-13 10:14 | Anesthesia Day of Surgery ---
Anesthesia Day of Surgery - Day of Surgery Patient Examined: Yes Patient H&P Reviewed: Yes Patient is NPO: Yes
[2020-01-13] MEDS ORDERED: propofoL 200 MG/20 ML VIAL IV ONE (10:33)
[2020-01-13] MEDS ORDERED: fentaNYL 100 MCG/2 ML INJ ONE ×2 (10:33→11:30)
[2020-01-13] MEDS ORDERED: MIDAZOLAM 2 MG/2 ML INJ ONE (10:41)
[2020-01-13] MEDS ORDERED: dexAMETHasone 20 MG/5 ML VIAL ONE (10:43)
[2020-01-13] MEDS ORDERED: SUCCINYLCHOLINE CHLORIDE 200 MG/10 ML INJ MDV ONE (10:43)
[2020-01-13] MEDS ORDERED: PHENYLEPHRINE/NS 1,000 MCG/10 ML SYRINGE (OR USE) IV ONE (10:43)
[2020-01-13] MEDS ORDERED: GLYCOPYRROLATE 0.4 MG/2 ML INJ ONE (10:43)
[2020-01-13] MEDS ORDERED: LIDOCAINE MPF (2%) 20 MG/1 ML VIAL 5 ML ONE (10:43)
[2020-01-13] MEDS ORDERED: ROCURONIUM 50 MG/5 ML INJ IV ONE (10:43)
[2020-01-13] MEDS ORDERED: NEOSTIGMINE 10MG/10 ML INJ MDV ONE (10:43)
[2020-01-13] MEDS ORDERED: ONDANSETRON 4 MG/2 ML INJ ONE (10:43)
[2020-01-13] MEDS ORDERED: ePHEDrine SULFATE 50 MG/1 ML INJ ONE (10:43)
[2020-01-13] MEDS ORDERED: WATER FOR IRRIG STERILE 1,500 ML BOTTLE IR ONE (11:22)
[2020-01-13] MEDS ORDERED: HYDROmorphone 1 MG/1 ML INJ ONE ×2 (11:23→11:54)
--- NOTE | 2020-01-13 13:06 | Post Operative Note ---
Date of procedure: 01/13/20 (dictation:[id number]) Pre-op diagnosis: acute on chronic cholecystitis Post-op diagnosis: same Findings: enlarged, thickened GB with dense surrounding adhesions. Procedure: Lap ketty Lap lysis of adhesions. IVF 1200cc EBL ~ 150cc Anesthesia: GETA Surgeon: DALTON YORK Estimated blood loss: other (~150cc) Pathology: list (gallbladder) Specimen disposition: to lab Condition: stable Disposition: PACU
[2020-01-13] MEDS: LOSARTAN 50 MG TAB PO SCH (14:46)
--- NOTE | 2020-01-13 15:38 | Operative Report ---
PREOPERATIVE DIAGNOSIS: Acute on chronic cholecystitis. POSTOPERATIVE DIAGNOSIS: Acute on chronic cholecystitis. PROCEDURES: 1. Laparoscopic lysis of adhesions. 2. Laparoscopic cholecystectomy. ATTENDING PHYSICIAN: Dalila Tabares MD ANESTHESIA: General. ESTIMATED BLOOD LOSS: Approximately 150 mL. FLUIDS: 1200 mL. FINDINGS: Markedly enlarged and thickened gallbladder with large stone in the neck. The patient had very dense omental adhesions surrounding the gallbladder as well as adhesions to the stomach. The peritoneal covering was very thick and the attachments to the liver bed were very firm. SPECIMENS: Gallbladder. DRAINS: 15-Dutch round fully fluted drain. COMPLICATIONS: None. DISPOSITION: Stable, transferred to Recovery Room. INDICATIONS: This is a 69-year-old female who has had multiple bouts of abdominal pain, but presented this time due to severe abdominal pain. The patient was assessed to have acute cholecystitis. By her history, also there seemed to be a component of chronic cholecystitis. The patient is assessed to be in need for laparoscopic cholecystectomy. Procedure, risks, benefits were explained to the patient. Risks included but were not limited to infection, bleeding, pain, injury to surrounding structures, possible need for open surgery, possible need for further procedures in the future. The patient understood and consented. OPERATIVE NOTE: The patient was brought to the operating room and placed on the table in supine position. After adequate general anesthesia was established, the patient was prepped and draped in usual sterile fashion. The patient was already on antibiotics. SCDs were in place. Timeout had been called. I began by placing a Veress needle in left upper quadrant. I was able to insufflate on the first attempt. We then placed a 5 mm port using the Optiview technique at the supraumbilical position. We entered the peritoneal cavity safely. The area under the Veress needle was also uninjured. Veress needle was removed. We then placed two additional 5 mm ports along the right subcostal margin and a 12 mm port at the epigastric location. We began by taking down the omental adhesions. There were very extensive adhesions all around the gallbladder. The stomach was also adhered near the neck of the gallbladder. All this was carefully taken down using the Harmonic scalpel. Once we took this down then we tried to grasp the gallbladder. It was quite distended. Aspiration needle was used to aspirate out a large amount of thick dark bile. Once that was done, we were able to grasp the gallbladder a little bit easier. We then elevated the gallbladder gradually as we took down more adhesions. Once we got down near the neck, we were able to elevate over the liver edge. We proceeded to dissect out the triangle of [place]. We ultimately got down to the cystic duct and cystic artery. However, it turned out that what initially was thought to be perhaps another adhesion ended up being the cystic duct after it was divided, the area on the gallbladder looked like it was a small opening; however, there was no bile coming through. Therefore, as a precaution, I placed a clip on the other side and later placed an Endoloop around that area just to be sure. Later on during the dissection, bile started to come out of that opening in the gallbladder side, so indeed that was the duct, we had secured it with the clip and Endoloop. Cystic artery was clipped on either side and divided sharply. We removed the gallbladder from the bed using the Harmonic scalpel. Extensive time was required due to the density of the adhesions to the liver bed. We eventually were able to get the gallbladder off the liver bed, placed it in the EndoCatch bag and left inside. We thoroughly irrigated out the gallbladder bed. We examined the area where we had divided the cystic duct. The clip was intact. The Endoloop looked to be nice and tight. We saw no evidence of any bile leaking out or accumulating in that area. However, due to the concern of a possible leak, I left a 15-Dutch round fully fluted drain in that vicinity, brought it out the right lateral port. Hemostasis was very good. We saw no evidence of any bleeding. After everything was cleaned up, we then proceeded to remove the EndoCatch bag from the epigastric port site. We did have to increase the opening of that port site in order to get the specimen out. The gallbladder stone was quite large, which was impeding the extraction. Once that was done, we used the Alberto-Alberto fascial closure device with a 2-0 PDS suture to close the fascia. Additional local was injected. We desufflated the abdomen. All ports were removed. 4-0 Monocryl subcuticular stitches were then placed in all the wounds except where the drain was coming out. That drain was secured with a 3-0 nylon stitch. Skin was cleaned and dried. Dermabond was placed. The patient tolerated the procedure well. There were no complications. All counts were correct at the end of the case. [facility]# [id number] MIGUE/AILYN
--- NOTE | 2020-01-13 17:35 | Post Anesthesia Evaluation ---
- Post Anesthesia Evaluation Patient Participated: Yes Airway Patent: Yes Stable Respiratory Function: Yes Nausea/Vomiting: No Temp > 96.8F: Yes Pain Manageable: Yes Adequeate Hydration: Yes Anesthesia Complications: No Block Receding Appropriately: Not Applicable Patient on Ventilator: No
[2020-01-14 01:26] LABS: Hemoglobin 11.6 gm/dl (10.1-14.3); Mean Corpuscular HGB Conc 32 % (30-34); Mean Corpuscular Volume 88 fl (79-97); Platelet Count 276 K/mm3 (140-440); Red Blood Count 4.11 M/mm3 (3.65-5.03); Red Cell Distribution Width 15.3 % (13.2-15.2)
[2020-01-14] MEDS: MORPHINE 2 MG/1 ML INJ IV PRN (02:17)
[2020-01-14 03:28] LABS: Band Neutrophils # (Manual) 0.1 K/mm3; Basophils % (Manual) 0 % (0.0-1.8); Eosinophils % (Manual) 0 % (0.0-4.3); Platelet Estimate Consistent w Auto; RBC Morphology Normal; Total Cells Counted 100
[2020-01-14 05:53] LABS: Hematocrit 33.2 % (30.3-42.9); Hemoglobin 11.2 gm/dl (10.1-14.3); Mean Corpuscular HGB Conc 34 % (30-34); Mean Corpuscular Volume 87 fl (79-97); Platelet Count 278 K/mm3 (140-440); Red Blood Count 3.81 M/mm3 (3.65-5.03); Red Cell Distribution Width 15.5 % (13.2-15.2)
[2020-01-14 06:12] LABS: Alanine Aminotransferase 71 units/L (7-56); Albumin 3.3 g/dL (3.9-5); Blood Urea Nitrogen 7 mg/dL (7-17); Calcium 9.6 mg/dL (8.4-10.2); Hemolysis Index 2
[2020-01-14 06:24] LABS: BUN/Creatinine Ratio 12
[2020-01-14] MEDS: PIPERACIL/TAZOBACTA 4.5/NS 100 4.5 GM/100 ML VIAL IV SCH ×2 (06:31)
[2020-01-14] MEDS: HEPARIN 5,000 UNIT/1 ML VIAL SUB-Q SCH (06:32)
[2020-01-14] MEDS: LOSARTAN 50 MG TAB PO SCH (09:06)
--- NOTE | 2020-01-14 09:46 | Discharge Summary ---
Providers - Providers Date of Admission: 01/11/20 12:27 Attending physician: MICHEL KU MD Primary care physician: CRAB STEAMER Hospitalization Reason for admission: Abdominal Pain Condition: Stable Hospital course: 69-year-old female with a medical history of hypertension presented to the emergency room with a chief complaint of abdominal pain that started 3 days prior to presentation. Patient also complains of nausea without any vomiting. Here in the ER, patient had a CT abdomen that showed cholelithiasis with cholecystitis and surgery was consulted. Patient has been admitted for further evaluation. 01/10. Patient to go to the OR as per surgery on 01/12. Started patient on IV antibiotics. Clear liquid diet for now 01/11. Patient seen and examined at bedside this morning. Abdominal pain is slightly improved. On antibiotics. WBC trending down-17. She is tolerating clear liquid diet. Seen by surgery. Plan for laparoscopic cholecystectomy tomorrow. N.p.o. after midnight 01/12: To OR today for laparoscopic cholecystectomy, will discuss with surgery post op about discharge plans. WBC continues to trend down. Stool softener 01/13: Clinically improving, tolerating diet. Discussed with surgeon, patient will go home with antibiotics for about 1 week and also the drain and record the output and follow up in 1 week for drain to be removed. She also prefered the tramadol to the oxycodone for pain control Advised to go easy on food. Hydration is must important at this time. She reports gas, no BM yet. She will continue on stool softner. Pre-op diagnosis: acute on chronic cholecystitis Post-op diagnosis: same Findings: enlarged, thickened GB with dense surrounding adhesions. Procedure: Lap ketty Lap lysis of adhesions. - Patient Problems (1) Acute cholecystitis Current Visit: Yes Status: Acute (2) Cholelithiasis (3) Hypertension (4) Constiption Disposition: - TO HOME OR SELFCARE Time spent for discharge: 35 mins Core Measure Documentation - Palliative Care Palliative Care/ Comfort Measures: Not Applicable - Core Measures Any of the following diagnoses?: none Exam - Physical Exam Narrative exam: General appearance: Present: no acute distress, well-nourished, Sitting up - EENT Eyes: Present: PERRL - Neck Neck: Present: supple - Respiratory Respiratory: bilateral: CTA - Cardiovascular Rhythm: regular Heart Sounds: Present: S1 & S2 - Extremities Extremities: no ischemia, No edema - Abdominal General gastrointestinal: soft, tender at surgery site, non-distended, normal bowel sounds - Neurologic Neurologic: CNII-XII intact - Constitutional Vitals: Temp Pulse Resp BP Pulse Ox 99.0 F 54 L 18 165/62 97 01/14/20 07:08 01/14/20 07:08 01/14/20 07:08 01/14/20 07:08 01/14/20 07:08 Plan Activity: advance as tolerated, fall precautions Diet: low fat (FULL LIQUID DIET FOR 2-3 DAYS AND ADVANCE ONLY TOLERATED) Wound: per your surgeon's advice, drain care as instructed Special Instructions: record daily BP diary Follow up with: PRIMARY MD AVANI [Primary Care Provider] - 7 Days DALTON YORK MD [Staff Physician] - 7 Days Prescriptions: Sennosides Tab [Senokot] 8.6 mg PO BID #30 tablet traMADoL [Ultram 50 MG tab] 25 mg PO Q6HR PRN #14 tablet PRN Reason: Pain, Moderate (4-6) Ondansetron [Zofran Odt] 4 mg PO Q8HR #30 tab.rapdis
--- NOTE | 2020-01-14 09:59 | Progress Note ---
Assessment and Plan - Patient Problems (1) Acute cholecystitis Current Visit: Yes Status: Acute Plan to address problem: Pt stable. s/p lap ketty and lap lysis of adhesions - POD#1. Patient appears to be doing well. Recommendations: 1. Okay to discharge home from my standpoint 2. Suggest 1 week of oral antibiotics 3. Patient should go home with WINSOME drain. She should record the daily output 4. Follow-up in general surgery clinic in 7 to 10 days 5. Focus on hydration. Advance diet as tolerated. Please call with any questions Subjective Date of service: 01/14/20 Patient Reports: Positive: no new complaints, feels better, tolerating liquids well. Negative: nausea, vomiting Objective Vital Signs - 12hr 01/14/20 01/14/20 01/14/20 00:00 04:00 06:34 Temperature 98.3 F 98.3 F Pulse Rate 62 60 60 Respiratory 20 18 Rate Blood Pressure 176/83 Blood Pressure 168/79 176/83 [Right] O2 Sat by Pulse 97 100 Oximetry 01/14/20 07:08 Temperature 99.0 F Pulse Rate 54 L Respiratory 18 Rate Blood Pressure 165/62 Blood Pressure [Right] O2 Sat by Pulse 97 Oximetry - General physical appearance no distress, no pain, other (looks tired) - Respiratory normal expansion, normal respiratory effort - Abdomen soft, other (serosang drainage in WINSOME. No bile) - Psychiatric oriented to time, oriented to person, oriented to place, speech is normal, memory intact - Labs 01/14/20 05:12 01/14/20 05:12 Diabetes panel 01/14/20 Range/Units 05:12 Sodium 140 (137-145) mmol/L Potassium 4.3 D (3.6-5.0) mmol/L Chloride 102.2 (98-107) mmol/L Carbon Dioxide 26 (22-30) mmol/L BUN 7 (7-17) mg/dL Creatinine 0.6 (0.6-1.2) mg/dL Glucose 156 H (65-100) mg/dL Calcium 9.6 (8.4-10.2) mg/dL AST 36 (5-40) units/L ALT 71 H (7-56) units/L Alkaline Phosphatase 188 H (35-129) units/L Total Protein 6.7 (6.3-8.2) g/dL Albumin 3.3 L (3.9-5) g/dL Calcium panel 01/14/20 Range/Units 05:12 Calcium 9.6 (8.4-10.2) mg/dL Albumin 3.3 L (3.9-5) g/dL Pituitary panel 01/14/20 Range/Units 05:12 Sodium 140 (137-145) mmol/L Potassium 4.3 D (3.6-5.0) mmol/L Chloride 102.2 (98-107) mmol/L Carbon Dioxide 26 (22-30) mmol/L BUN 7 (7-17) mg/dL Creatinine 0.6 (0.6-1.2) mg/dL Glucose 156 H (65-100) mg/dL Calcium 9.6 (8.4-10.2) mg/dL Adrenal panel 01/14/20 Range/Units 05:12 Sodium 140 (137-145) mmol/L Potassium 4.3 D (3.6-5.0) mmol/L Chloride 102.2 (98-107) mmol/L Carbon Dioxide 26 (22-30) mmol/L BUN 7 (7-17) mg/dL Creatinine 0.6 (0.6-1.2) mg/dL Glucose 156 H (65-100) mg/dL Calcium 9.6 (8.4-10.2) mg/dL Total Bilirubin 0.30 (0.1-1.2) mg/dL AST 36 (5-40) units/L ALT 71 H (7-56) units/L Alkaline Phosphatase 188 H (35-129) units/L Total Protein 6.7 (6.3-8.2) g/dL Albumin 3.3 L (3.9-5) g/dL
[2020-01-14 11:21] VITALS: BP 146/65
== END 2020-01-14 12:20 | disposition home or self-care (01) | DRG 418 ==
LOC: ED 07:49 → 3B-SURG 12:27
PROVIDERS: ADMIT Internal Medicine; ATTEND Internal Medicine
PROC: 0FT44ZZ Resection of Gallbladder, Percutaneous Endoscopic Approach (ICD-10-PCS; principal; 2020-01-13)
PROC: 0FN44ZZ Release Gallbladder, Percutaneous Endoscopic Approach (ICD-10-PCS; 2020-01-13)
PROC: 0DNW4ZZ Release Peritoneum, Percutaneous Endoscopic Approach (ICD-10-PCS; 2020-01-13)
DX: K80.00 Calculus of gallbladder with acute cholecystitis without obstruction (principal); R65.10 Systemic inflammatory response syndrome (SIRS) of non-infectious origin without acute organ dysfunction; I10 Essential (primary) hypertension; K59.00 Constipation, unspecified; Z79.891 Long term (current) use of opiate analgesic; Z98.891 History of uterine scar from previous surgery
CPT/HCPCS: 36415; 74177; 80053; 81001; 82140; 83690; 85007; 85025; 85027; 87040; 88304; 96365; G0378; J0330; J1100; J1170; J1644; J2250; J2270; J2370; J2405; J2543; J2704; J2710; J3010; J7030; Q9967

== ENCOUNTER 2021-01-14 01:05 | Emergency (ER) | payer MEDICARE ==
[2021-01-14 02:13] VITALS: BP 180/87
--- NOTE | 2021-01-14 03:47 | Emergency Department Report ---
ED ENT HPI - General Chief complaint: Dental/Oral Stated complaint: ABCESS ON GUMS Time Seen by Provider: 01/14/21 03:04 Source: patient Mode of arrival: Ambulatory Limitations: No Limitations - History of Present Illness MD complaint: tooth pain -: Gradual Location: tooth # Severity: mild, moderate Quality: aching, dull Consistency: constant Improves with: none Worsens with: none Context- Dental: history of dental caries, poor dental care Associated Symptoms: gum swelling, toothache. denies: sore throat, tinnitus, discharge from ear, rhinorrhea - Related Data Home Medications Medication Instructions Recorded Confirmed Last Taken Losartan Potassium 50 mg PO DAILY 01/11/20 01/11/20 01/11/20 Previous Rx's Medication Instructions Recorded Last Taken Type Ondansetron [Zofran Odt] 4 mg PO Q8HR #30 tab.rapdis 01/14/20 Unknown Rx Sennosides Tab [Senokot] 8.6 mg PO BID #30 tablet 01/14/20 Unknown Rx traMADoL [Ultram 50 MG tab] 25 mg PO Q6HR PRN #14 tablet 01/14/20 Unknown Rx Amoxicillin [Amoxicillin TAB] 875 mg PO BID #20 tablet 01/14/21 Unknown Rx Chlorhexidine Mouthwash [Peridex] 15 ml MM BID #1 bottle 01/14/21 Unknown Rx Lidocaine Viscous 2% 5 ml MM Q3H PRN #120 udc 01/14/21 Unknown Rx Allergies Allergy/AdvReac Type Severity Reaction Status Date / Time acetaminophen [From Vicodin] Allergy Rash Verified 01/14/21 02:06 hydrocodone [From Vicodin] Allergy Rash Verified 01/14/21 02:06 ED Dental HPI - General Chief complaint: Dental/Oral Stated complaint: ABCESS ON GUMS Time Seen by Provider: 01/14/21 03:04 Source: patient Mode of arrival: Ambulatory Limitations: No Limitations - Related Data Home Medications Medication Instructions Recorded Confirmed Last Taken Losartan Potassium 50 mg PO DAILY 01/11/20 01/11/20 01/11/20 Previous Rx's Medication Instructions Recorded Last Taken Type Ondansetron [Zofran Odt] 4 mg PO Q8HR #30 tab.rapdis 01/14/20 Unknown Rx Sennosides Tab [Senokot] 8.6 mg PO BID #30 tablet 01/14/20 Unknown Rx traMADoL [Ultram 50 MG tab] 25 mg PO Q6HR PRN #14 tablet 01/14/20 Unknown Rx Amoxicillin [Amoxicillin TAB] 875 mg PO BID #20 tablet 01/14/21 Unknown Rx Chlorhexidine Mouthwash [Peridex] 15 ml MM BID #1 bottle 01/14/21 Unknown Rx Lidocaine Viscous 2% 5 ml MM Q3H PRN #120 udc 01/14/21 Unknown Rx Allergies Allergy/AdvReac Type Severity Reaction Status Date / Time acetaminophen [From Vicodin] Allergy Rash Verified 01/14/21 02:06 hydrocodone [From Vicodin] Allergy Rash Verified 01/14/21 02:06 ED Review of Systems ROS: Stated complaint: ABCESS ON GUMS Other details as noted in HPI Comment: All other systems reviewed and negative ED Past Medical Hx - Past Medical History Hx Hypertension: Yes Hx Heart Attack/AMI: No Hx Liver Disease: No Hx Renal Disease: No Hx Sickle Cell Disease: No Hx Seizures: No Hx Asthma: No Hx COPD: No - Surgical History Hx Pacemaker: No Hx Internal Defibrillator: No Additional Surgical History: 1981 - Social History Smoking Status: Never Smoker Substance Use Type: None - Medications Home Medications: Home Medications Medication Instructions Recorded Confirmed Last Taken Type Losartan Potassium 50 mg PO DAILY 01/11/20 01/11/20 01/11/20 History Ondansetron [Zofran Odt] 4 mg PO Q8HR #30 tab.rapdis 01/14/20 Unknown Rx Sennosides Tab [Senokot] 8.6 mg PO BID #30 tablet 01/14/20 Unknown Rx traMADoL [Ultram 50 MG tab] 25 mg PO Q6HR PRN #14 tablet 01/14/20 Unknown Rx Amoxicillin [Amoxicillin TAB] 875 mg PO BID #20 tablet 01/14/21 Unknown Rx Chlorhexidine Mouthwash [Peridex] 15 ml MM BID #1 bottle 01/14/21 Unknown Rx Lidocaine Viscous 2% 5 ml MM Q3H PRN #120 udc 01/14/21 Unknown Rx ED Physical Exam - General Limitations: No Limitations General appearance: alert, in no apparent distress - Head Head exam: Present: atraumatic, normocephalic - Eye Eye exam: Present: normal appearance, PERRL, EOMI Pupils: Present: normal accommodation - ENT ENT exam: Present: mucous membranes moist, TM's normal bilaterally, other (Dental erosion to the left upper molar with adjacent gingival erythema and swelling. Tenderness with palpation. Airway patent tongue uvula midline. No lymphadenopathy.) - Neck Neck exam: Present: normal inspection, full ROM - Respiratory Respiratory exam: Present: normal lung sounds bilaterally. Absent: respiratory distress - Cardiovascular Cardiovascular Exam: Present: regular rate, normal rhythm. Absent: systolic murmur, diastolic murmur, rubs, gallop - GI/Abdominal GI/Abdominal exam: Present: soft, normal bowel sounds - Extremities Exam Extremities exam: Present: normal inspection - Back Exam Back exam: Present: normal inspection - Neurological Exam Neurological exam: Present: alert, oriented X3 - Psychiatric Psychiatric exam: Present: normal affect, normal mood - Skin Skin exam: Present: warm, dry, intact, normal color. Absent: rash ED Course Vital Signs 01/14/21 01/14/21 02:11 02:13 Temperature 97.8 F Pulse Rate 61 Respiratory 16 Rate Blood Pressure 180/87 O2 Sat by Pulse 98 Oximetry ED Medical Decision Making - Medical Decision Making 70-year-old female ith no history of any compromised nontoxic appearance patient is euvolemic with no trismus no airway compromise unable to tolerate p.o. given history and examination low suspicion for this presentation being caused by peritonsillar abscess, Parag, bacterial tracheitis, acute HIV, epiglottitis, retropharyngeal abscess. Critical care attestation.: If time is entered above; I have spent that time in minutes in the direct care of this critically ill patient, excluding procedure time. ED Disposition Clinical Impression: Dental infection, Dentalgia Disposition: 01 HOME / SELF CARE / HOMELESS Is pt being admited?: No Does the pt Need Aspirin: No Condition: Stable Instructions: Dental Abscess, Preventive Dental Care, Adult Prescriptions: Amoxicillin [Amoxicillin TAB] 875 mg PO BID #20 tablet Lidocaine Viscous 2% 5 ml MM Q3H PRN #120 udc PRN Reason: Pain, Moderate (4-6) Chlorhexidine Mouthwash [Peridex] 15 ml MM BID #1 bottle
== END 2021-01-14 05:16 | disposition home or self-care (01) ==
LOC: ED 01:05
DX: K04.7 Periapical abscess without sinus (principal); K08.89 Other specified disorders of teeth and supporting structures; I10 Essential (primary) hypertension
CPT/HCPCS: 99281